=== PATIENT | female | born 1965 | race Caucasian/White ===

== ENCOUNTER → 2019-03-10 | Outpatient (CLI) | payer BC, SELFPAY ==
--- NOTE | 2019-03-10 06:58 | BI_ITS ---
MAMMOGRAPHY - BILATERAL SCREENING REASON FOR EXAM: Female, 53 years old. Routine annual screening examination. PERTINENT HISTORY: Grandmother with breast cancer. TECHNIQUE: Digital bilateral breast leonides (3D mammographic acquisition) in the CC and MLO projections. 2-D mediolateral oblique (MLO) and craniocaudad (CC) views of both breasts were obtained. CAD: Full Field Digital Mammography with Computer Added Detection was performed. COMPARISON: Comparison is made with prior outside examination dated November 25, 2008. FINDINGS: Breast Composition: There are scattered areas of fibroglandular density. There are no dominant masses or suspicious calcifications. Stable bilateral benign appearing axillary lymph nodes. No other significant abnormalities are identified. There has been no significant change since the prior study. BI/SCREEN MAMM (CAD) W/LEONIDES BILAT IMPRESSION: Stable bilateral screening mammogram. Yearly follow-up mammogram recommended. (A) ASSESSMENT CATEGORY: BIRADS Category 2: Benign. A letter regarding these results will be sent to the patient by the facility within 30 days. Approximately 10% of breast cancers are not detected by mammography. A normal mammogram should not delay biopsy of a clinically suspicious abnormality. [id number] Electronically Signed: Dimitrios Cyr, at 9:00 EDT , Service support ,
== END | disposition home or self-care (01) ==
LOC: OPBI 06:56
PROVIDERS: Family Provider Family Medicine; PCP Family Medicine; Referring Provider Nurse Practitioner Women's Health; Visit Provider Nurse Practitioner Women's Health
DX: Z12.31 Encounter for screening mammogram for malignant neoplasm of breast (principal)
CPT/HCPCS: 77063; 77067

== ENCOUNTER → 2019-06-24 | Outpatient (CLI) | payer BC, SELFPAY ==
[2019-06-24 08:05] VITALS: BMI 26.8
[2019-06-24 09:24] LABS: Cholesterol 186 mg/dL (200); Glucose 100 mg/dL (74-106); High Density Lipoprotein 57 mg/dL; Thyroid Stim Hormone (TSH) 2.25 uIU/mL (0.358-3.74); Triglycerides 103 mg/dL; Very Low Density Lipoprotein 21 mg/dL (5-40)
[2019-06-27 11:17] LABS: HPV APTIMA, High Risk Negative (Negative)
== END | disposition home or self-care (01) ==
PROVIDERS: PCP Family Medicine; Referring Provider Nurse Practitioner Women's Health; Visit Provider Nurse Practitioner Women's Health
DX: Z00.00 Encounter for general adult medical examination without abnormal findings (principal); Z12.4 Encounter for screening for malignant neoplasm of cervix
CPT/HCPCS: 36415; 80061; 82947; 84443; 87624; 88175; G0145

== ENCOUNTER → 2020-07-22 08:12 | Outpatient (CLI) | payer BC, SELFPAY ==
[2019-06-24 08:05] VITALS: BMI 26.8
[2020-07-20 08:07] VITALS: BMI 26.9
--- NOTE | 2020-07-22 08:14 | BI_ITS ---
MAMMOGRAPHY - BILATERAL SCREENING REASON FOR EXAM: Female, 55 years old. Routine annual screening examination. PERTINENT HISTORY: Grandmother with breast cancer. TECHNIQUE: Digital bilateral breast leonides (3D mammographic acquisition) in the CC and MLO projections. 2-D mediolateral oblique (MLO) and craniocaudad (CC) views of both breasts were obtained. CAD: Full Field Digital Mammography with Computer Added Detection was performed. COMPARISON: Comparison is made with prior study dated 03/10/2019. FINDINGS: Breast Composition: There are scattered areas of fibroglandular density. Questionable 1.4 cm x 1 cm nodular density in the upper lateral aspect of the left breast. Correlation with ultrasound is recommended. Stable benign appearing bilateral axillary lymph nodes. No other significant abnormalities are identified. BI/SCRN MAMM (CAD)W/LEONIDES BILAT IMPRESSION: Questionable 1.4 cm x 1 cm nodular density in the upper lateral aspect of the left breast as described. Correlation with ultrasound is recommended. ASSESSMENT CATEGORY: BIRADS Category 0: Incomplete. Need additional imaging evaluation. A letter regarding these results will be sent to the patient by the facility within 30 days. Approximately 10% of breast cancers are not detected by mammography. A normal mammogram should not delay biopsy of a clinically suspicious abnormality. [id number] Electronically Signed: Dimitrios Cyr MD at 11:32 EDT , Service support ,
== END ==
PROVIDERS: PCP Family Medicine; Referring Provider Obstetrics & Gynecology; Visit Provider Obstetrics & Gynecology
DX: Z12.31 Encounter for screening mammogram for malignant neoplasm of breast (principal)
CPT/HCPCS: 77063; 77067

== ENCOUNTER → 2020-08-02 07:49 | Outpatient (CLI) | payer BC, SELFPAY ==
[2020-07-20 08:07] VITALS: BMI 26.9
--- NOTE | 2020-08-02 07:57 | US_ITS ---
STUDY: ULTRASOUND BREAST - LEFT REASON FOR EXAM: Female, 55 years old. Abnormal screening mammogram. TECHNIQUE: Axial and longitudinal images of the LEFT breast were performed with a high resolution ultrasound transducer. # OF IMAGES: 53 COMPARISON: Comparison is made with prior mammogram dated 07/22/2020. FINDINGS: LEFT Breast: The upper outer quadrant of the breast was examined by ultrasound. There is evidence of a dilated ducts. No solid or cystic mass is seen. US/Breast Limited Unilateral IMPRESSION: Dilated ducts. ASSESSMENT CATEGORY: BIRADS Category 2: Benign. A letter regarding these results will be sent to the patient by the facility within 30 days. Electronically Signed: Dimitrios Cyr MD at 9:59 EDT , Service support ,
== END ==
PROVIDERS: PCP Family Medicine; Referring Provider Obstetrics & Gynecology; Visit Provider Obstetrics & Gynecology
DX: N63.21 Unspecified lump in the left breast, upper outer quadrant (principal)
CPT/HCPCS: 76642

== ENCOUNTER → 2023-10-05 | Outpatient (CLI) | payer OTHER, SELFPAY ==
[2023-10-05 09:17] LABS: Absolute Lymphocyte Count 1.83 X10^3/uL (0.83-4.51); Absolute Neutrophil Count 2.6 X10^3/uL (2.0-7.7); Basophil# 0.04 X10^3/uL; Basophil% 0.8 % (0-1); Eosinophil# 0.08 X10^3/uL; Eosinophils% 1.6 % (0-5); Hematocrit 40.9 % (37-47); Hemoglobin 13.4 g/dL (12.0-15.0); Lymphocyte # 1.83 X10^3/ul (0.83-4.51); Lymphocyte % 36.6 % (19-41); Mean Corp Hgb Conc 32.8 g/dL (32-36); Mean Corpuscular Hgb 30.2 pg (27.0-32.0); Mean Corpuscular Volume 92.1 fL (81-99); Mean Platelet Vol. 9.2 fl (6.2-12.0); NRBC Flagged by Analyzer 0 % (0-5); Neutrophil # 2.64 X10^3/uL (2.7-7.7); Neutrophil % 52.8 % (47-70); Platelet Count 202 K/mm3 (150-450); RBC Distribution Width CV 13.4 % (11.6-14.6); RBC Distribution Width SD 45.7 fl (35.1-43.9); Red Blood Count 4.44 M/mm3 (4.2-5.4)
[2023-10-05 10:35] LABS: Hemoglobin A1c 5.5 % (3.8-5.6)
[2023-10-05 10:39] LABS: ALB/GLOB Ratio 1.2 RATIO (0.9-2.4); AST(SGOT) 22 U/L (15-37); Alanine Aminotransfer ALT/SGPT 26 U/L (13-56); Alkaline Phosphatase 61 U/L (45-117); Anion Gap 5 (5-15); BUN 17 mg/dL (7-18); BUN/Creat Ratio 17.9 RATIO (10-20); Calcium,Total 9.4 mg/dL (8.5-10.1); Chloride 107 mmol/L (98-107); Cholesterol 196 mg/dL (200); Creatinine, Serum 0.95 mg/dL (0.55-1.02); EST Glomerular Filtration Rate 64 mL/min (>60); Est Glom Filt Rate - Afr Amer 78 mL/min (>60); Globulin 3.4 g/dL (2.2-4.2); Glucose 100 mg/dL (74-106); High Density Lipoprotein 66 mg/dL; Potassium 4.3 mmol/L (3.5-5.1); Protein, Total 7.4 g/dL (6.4-8.2); Rheumatoid Factor < 10.0 IU/mL (<15); Sodium Level 138 mmol/L (136-145); Triglycerides 85 mg/dL; Very Low Density Lipoprotein 17 mg/dL (5-40)
== END | disposition home or self-care (01) ==
LOC: PAVLAB 08:39
PROVIDERS: PCP Nurse Practitioner; Referring Provider Nurse Practitioner; Visit Provider Nurse Practitioner
DX: Z00.00 Encounter for general adult medical examination without abnormal findings (principal); M19.049 Primary osteoarthritis, unspecified hand
CPT/HCPCS: 36415; 80053; 80061; 83036; 85025; 86431

== ENCOUNTER → 2023-10-12 | Outpatient (CLI) | payer OTHER, SELFPAY ==
--- NOTE | 2023-10-12 07:55 | BI_ITS ---
MAMMOGRAPHY - BILATERAL SCREENING REASON FOR EXAM: Female, 58 years old. Routine annual screening examination. PERTINENT HISTORY: Grandmother with breast cancer. TECHNIQUE: Digital bilateral breast leonides (3D mammographic acquisition) in the CC and MLO projections. 2-D mediolateral oblique (MLO) and craniocaudad (CC) views of both breasts were obtained. CAD: Full Field Digital Mammography with Computer Added Detection was performed. COMPARISON: Comparison is made with prior study July 22, 2020 and March 10, 2019. FINDINGS: Breast Composition: There are scattered areas of fibroglandular density. There are no dominant masses or suspicious calcifications. No other significant abnormalities are identified. There has been no significant change since the prior study. BI/SCRN MAMM (CAD)W/LEONIDES BILAT IMPRESSION: Stable bilateral screening mammogram. Yearly follow-up mammogram recommended. (A) ASSESSMENT CATEGORY: BIRADS Category 1: Negative. A letter regarding these results will be sent to the patient by the facility within 30 days. Approximately 10% of breast cancers are not detected by mammography. A normal mammogram should not delay biopsy of a clinically suspicious abnormality. [id number] Electronically Signed: Dimitrios Cyr MD at 8:52 EDT ,
== END | disposition home or self-care (01) ==
LOC: OPBI 07:55
PROVIDERS: PCP Nurse Practitioner; Referring Provider Registered Nurse; Visit Provider Registered Nurse
DX: Z12.31 Encounter for screening mammogram for malignant neoplasm of breast (principal)
CPT/HCPCS: 77063; 77067

== ENCOUNTER → 2023-11-23 | Outpatient (CLI) | payer OTHER, SELFPAY ==
--- NOTE | 2023-11-23 13:48 | ECHOD_ITS ---
Reason For Study: Murmur Procedure This was a 2D Doppler, Color Flow transthoracic echocardiogram. Per order: valsalva was done to look for HOCM. Exam performed in department. Left Ventricle Normal LV size. The estimated ejection fraction is 60 %. No evidence for diastolic dysfunction. No regional wall motion abnormalities noted. Right Ventricle Normal RV size. Normal systolic function. Atria Normal left atrium. Normal right atrium. No doppler evidence for ASD. Mitral Valve There is no mitral valve stenosis. No mitral valve insufficiency. Tricuspid Valve There is no tricuspid stenosis. Trivial tricuspid valve insufficiency. Pulmonary artery systolic pressure is 20 mmHg. Aortic Valve Trisinus/trileaflet aortic valve. There is no aortic stenosis. No aortic valve insufficiency. Pulmonic Valve There is no pulmonic valvular stenosis. No pulmonic valve insufficiency. Great Vessels Normal aortic root. Pericardium/Pleural No pericardial effusion. MMode/2D Measurements & Calculations LVIDd: 4.5 cm IVSd: 0.86 cm Ao root diam: 3.2 cm LVIDs: 3.0 cm LVPWd: 1.0 cm LA dimension: 3.5 cm RVDd: 3.5 cm FS: 34.5 % LAV(MOD-bp): 40.1 ml LVAd ap4: 24.3 cm2 SV(MOD-sp4): 44.2 ml LAV(MOD-bp) Indexed: 23.1 ml/m2 LVLd ap4: 7.4 cm LAV(MOD-sp2): 34.4 ml EDV(MOD-sp4): 68.0 ml LAV(MOD-sp4): 41.3 ml EDV(sp4-el): 67.8 ml LVAs ap4: 12.8 cm2 LVLs ap4: 6.1 cm ESV(MOD-sp4): 23.8 ml ESV(sp4-el): 22.8 ml EF(MOD-sp4): 65.1 % EF(sp4-el): 66.4 % SV(sp4-el): 45.0 ml LA A4 area: 16.0 cm2 RA A4 area: 13.7 cm2 TAPSE: 2.1 cm Time Measurements MV dec time: 0.14 sec Doppler Measurements & Calculations MV E max pio: 76.6 cm/sec Lat Peak E' Pio: 13.6 cm/sec Med Peak E' Pio: 15.4 cm/sec MV A max pio: 65.7 cm/sec E/E' lat: 5.6 E/E' med: 5.0 MV E/A: 1.2 MV V2 max: 90.8 cm/sec MV P1/2t max pio: 92.8 cm/sec Ao V2 max: 174.6 cm/sec MV max P.3 mmHg MV P1/2t: 48.2 msec Ao max P.2 mmHg MV V2 mean: 43.6 cm/sec MV dec slope: 564.7 cm/sec2 Ao V2 mean: 121.4 cm/sec MV mean P.99 mmHg Ao mean P.7 mmHg MV V2 VTI: 22.8 cm MVA(P1/2t): 4.6 cm2 Ao V2 VTI: 38.8 cm AV (velocity ratio): 0.75 LV V1 max: 130.7 cm/sec PA V2 max: 96.6 cm/sec TR max pio: 209.1 cm/sec LV V1 max P.8 mmHg PA max PG (full): 1.4 mmHg TR max P.5 mmHg LV V1 mean P.8 mmHg PA V2 mean: 70.8 cm/sec LV V1 mean: 91.1 cm/sec PA mean PG (full): 0.96 mmHg LV V1 VTI: 29.0 cm ECHO/Echo Complete Interpretation Summary The estimated ejection fraction is 60 %. No evidence for diastolic dysfunction. Ordering Physician: Gale Chapman Referring Physician: Gale Chapman Performed By: Geoffrey Joshi RCS
== END | disposition home or self-care (01) ==
LOC: CVS 13:47
PROVIDERS: PCP Nurse Practitioner; Referring Provider Nurse Practitioner; Visit Provider Nurse Practitioner
DX: Z00.00 Encounter for general adult medical examination without abnormal findings (principal); R01.1 Cardiac murmur, unspecified
CPT/HCPCS: 93306

== ENCOUNTER → 2024-05-01 | Outpatient (CLI) | payer OTHER, SELFPAY ==
--- NOTE | 2024-05-01 16:40 | RAD_ITS ---
EXAM: XR RIGHT KNEE COMPLETE, 4 OR MORE VIEWS CLINICAL INDICATION: PAIN TECHNIQUE: Four or more views of the right knee. COMPARISON: No relevant prior studies available. FINDINGS: BONES/JOINTS: Unremarkable. No acute fracture. No subluxation. Normal alignment. Preservation of the joint space. No sclerotic or destructive changes observed. SOFT TISSUES: Unremarkable. No soft tissue swelling or gas. No radiopaque foreign body. RAD/Knee 4 or More Views IMPRESSION: Negative right knee x-rays. Electronically Signed: Wytat Dickson MD at 23:42 EST ,
== END | disposition home or self-care (01) ==
LOC: RAD 16:39
PROVIDERS: PCP Internal Medicine; Referring Provider Physician Assistant Surgical; Visit Provider Physician Assistant Surgical
DX: M25.561 Pain in right knee (principal)
CPT/HCPCS: 73564

== ENCOUNTER 2024-10-16 15:41 | Outpatient (CLI) | payer OTHER, SELFPAY ==
[2024-10-21 15:08] LABS: HPV APTIMA, High Risk Negative (Negative)
== END 2024-10-16 23:59 | disposition home or self-care (01) ==
LOC: LABSPEC 15:41
PROVIDERS: PCP Internal Medicine; Referring Provider Nurse Practitioner Family; Visit Provider Nurse Practitioner Family
DX: Z12.4 Encounter for screening for malignant neoplasm of cervix (principal)
CPT/HCPCS: 87624; 88175; G0145

== ENCOUNTER → 2024-12-30 | Outpatient (CLI) | payer OTHER, SELFPAY ==
--- NOTE | 2024-12-30 16:50 | RAD_ITS ---
PROCEDURE: L/S SPINE BENDING FLEX/EXT 12/30/2024 REASON FOR EXAM: BACK PAIN TECHNIQUE: L/S SPINE BENDING FLEX/EXT COMPARISON: None FINDINGS: Vertebral body height and alignment are maintained. There is no spondylolisthesis or instability demonstrated on the flexion or extension views. There is loss of disc height throughout the lumbar region. There is moderate facet sclerosis. Mineralization is normal. There is no visible atherosclerosis. RAD/L/S Spine Bending Flex/Ext IMPRESSION: There is degenerative disc disease throughout the lumbar region. There is no instability demonstrated. Reading Location: [id number]
== END | disposition home or self-care (01) ==
LOC: RAD 16:50
PROVIDERS: PCP Internal Medicine; Referring Provider Student in an Organized Health Care Education/Training Program; Visit Provider Student in an Organized Health Care Education/Training Program
DX: M54.9 Dorsalgia, unspecified (principal)
CPT/HCPCS: 72120

== ENCOUNTER → 2025-01-13 | Outpatient (CLI) | payer OTHER, SELFPAY | END | disposition home or self-care (01) | LOC: LABSPEC 07:57 | PROVIDERS: PCP Internal Medicine; Visit Provider Nurse Practitioner | DX: R30.0 Dysuria (principal) | CPT/HCPCS: 87086; 87088; 87186 ==

== ENCOUNTER 2025-02-16 09:19 | Outpatient (CLI) | payer OTHER, SELFPAY | END 2025-02-16 23:59 | disposition home or self-care (01) | LOC: BIMLAB 09:19 | PROVIDERS: PCP Internal Medicine; Referring Provider Internal Medicine; Visit Provider Internal Medicine | DX: Z13.6 Encounter for screening for cardiovascular disorders (principal) | CPT/HCPCS: 83695 ==

== ENCOUNTER → 2025-02-24 | Outpatient (CLI) | payer OTHER, SELFPAY ==
--- NOTE | 2025-02-24 16:15 | BI_ITS ---
EXAM: SCRN MAMM (CAD)W/LEONIDES BILAT DATE: 02/24/2025 CLINICAL HISTORY: F, Age 59 y/o , SCREEN FOR BREAST CANCER History of grandmother with breast cancer. TECHNIQUE: Procedure Code: BISMWCADBTOM Modality: MG Procedure: SCRN MAMM (CAD)W/LEONIDES BILAT COMPARISON: Prior exam(s) dated October 12, 2023.. FINDINGS: TISSUE DENSITY: There are scattered areas of fibroglandular density. Bilateral Breast Mammographic Findings: 6.3 mm nodular density in the lateral aspect of the left breast as seen in the craniocaudad view. This was not well seen on the mediolateral oblique view. The patient will be recalled for additional views including 90 degree lateral and compression spot views of the left breast. Stable benign-appearing bilateral axillary lymph nodes. BI/SCRN MAMM (CAD)W/LEONIDES BILAT IMPRESSION: 6.3 mm nodular density in the lateral aspect of the left breast as seen on the craniocaudad view. The patient will be recalled for additional views including 90 degree lateral and compression spot views of the left breast. OVERALL FINAL ASSESSMENT BI-RADS 0: INCOMPLETE - NEED ADDITIONAL IMAGING EVALUATION. RECOMMENDATION: Additional Views obtained/call backs Additional Recommendation none A letter with findings and recommendations will be mailed to the patient. Reading Location: [place] [id number]
--- NOTE | 2025-02-24 16:15 | BI_ITS ---
EXAM: SCRN MAMM (CAD)W/LEONIDES BILAT DATE: 02/24/2025 CLINICAL HISTORY: F, Age 59 y/o , SCREEN FOR BREAST CANCER History of grandmother with breast cancer. TECHNIQUE: Procedure Code: [id number] Modality: MG Procedure: SCRN MAMM (CAD)W/LEONIDES BILAT COMPARISON: Prior exam(s) dated October 12, 2023.. FINDINGS: TISSUE DENSITY: There are scattered areas of fibroglandular density. Bilateral Breast Mammographic Findings: 6.3 mm nodular density in the lateral aspect of the left breast as seen in the craniocaudad view. This was not well seen on the mediolateral oblique view. The patient will be recalled for additional views including 90 degree lateral and compression spot views of the left breast. Stable benign-appearing bilateral axillary lymph nodes. BI/SCRN MAMM (CAD)W/LEONIDES BILAT IMPRESSION: 6.3 mm nodular density in the lateral aspect of the left breast as seen on the craniocaudad view. The patient will be recalled for additional views including 90 degree lateral and compression spot views of the left breast. OVERALL FINAL ASSESSMENT BI-RADS 0: INCOMPLETE - NEED ADDITIONAL IMAGING EVALUATION. RECOMMENDATION: Additional Views obtained/call backs Additional Recommendation none A letter with findings and recommendations will be mailed to the patient. Reading Location: [place] [id number]
== END | disposition home or self-care (01) ==
LOC: OPBI 16:09
PROVIDERS: PCP Internal Medicine; Referring Provider Nurse Practitioner Family; Visit Provider Nurse Practitioner Family
DX: Z12.31 Encounter for screening mammogram for malignant neoplasm of breast (principal)
CPT/HCPCS: 77063; 77067

== ENCOUNTER → 2025-02-27 | Outpatient (CLI) | payer OTHER, SELFPAY ==
--- NOTE | 2025-02-27 14:02 | BI_ITS ---
EXAM: DIAG MAMM W/CAD, UNILAT; LT BRST UNILAT LEONIDES ADD ON; BREAST LIMITED UNILATERAL 02/27/2025 CLINICAL HISTORY: F, Age 59 y/o , ABD MAMM TECHNIQUE: Procedure Code: [id number]; BILTUNITOMO; USBRSTLIMIT Modality: MG; US Procedure: DIAG MAMM W/CAD, UNILAT; LT BRST UNILAT LEONIDES ADD ON; BREAST LIMITED UNILATERAL. COMPARISON: Prior exam(s) dated mammograms 02/24/2025, 10/12/2023, 07/22/2020. Ultrasound 08/02/2020 FINDINGS: MAMMOGRAM: TISSUE DENSITY: There are scattered areas of fibroglandular density. Unilateral Left Breast Mammographic Findings: Follow-up examination performed for the asymmetry in the lateral left breast seen on examination of 02/24/2025. On the present examination the asymmetry in the lateral left breast at middle depth persist. However, this is not significantly changed when compared to multiple mammograms dating back to 07/22/2020. ULTRASOUND: Ultrasound performed of the lateral left breast demonstrates no definite sonographic correlate for the asymmetry in the left breast. However, there are a few dilated ducts seen at 2-3 o'clock. BI/Lt Brst Unilat Leonides Add On IMPRESSION: 1.The asymmetry in the lateral left breast has not significantly changed when c ompared to multiple priors dating back to 2020 and is therefore considered benign. 2. Benign dilated ducts in the left breast. OVERALL FINAL ASSESSMENT BI-RADS 2: BENIGN RECOMMENDATION: Routine annual follow-up in 1 Year Additional Recommendation none A letter with findings and recommendations will be mailed to the patient. Reading Location: [id number]
--- NOTE | 2025-02-27 14:02 | BI_ITS ---
EXAM: DIAG MAMM W/CAD, UNILAT; LT BRST UNILAT LEONIDES ADD ON; BREAST LIMITED UNILATERAL 02/27/2025 CLINICAL HISTORY: F, Age 59 y/o , ABD MAMM TECHNIQUE: Procedure Code: [id number]; BILTUNITOMO; USBRSTLIMIT Modality: MG; US Procedure: DIAG MAMM W/CAD, UNILAT; LT BRST UNILAT LEONIDES ADD ON; BREAST LIMITED UNILATERAL. COMPARISON: Prior exam(s) dated mammograms 02/24/2025, 10/12/2023, 07/22/2020. Ultrasound 08/02/2020 FINDINGS: MAMMOGRAM: TISSUE DENSITY: There are scattered areas of fibroglandular density. Unilateral Left Breast Mammographic Findings: Follow-up examination performed for the asymmetry in the lateral left breast seen on examination of 02/24/2025. On the present examination the asymmetry in the lateral left breast at middle depth persist. However, this is not significantly changed when compared to multiple mammograms dating back to 07/22/2020. ULTRASOUND: Ultrasound performed of the lateral left breast demonstrates no definite sonographic correlate for the asymmetry in the left breast. However, there are a few dilated ducts seen at 2-3 o'clock. BI/DIAG MAMM W/CAD, UNILAT IMPRESSION: 1.The asymmetry in the lateral left breast has not significantly changed when c ompared to multiple priors dating back to 2020 and is therefore considered benign. 2. Benign dilated ducts in the left breast. OVERALL FINAL ASSESSMENT BI-RADS 2: BENIGN RECOMMENDATION: Routine annual follow-up in 1 Year Additional Recommendation none A letter with findings and recommendations will be mailed to the patient. Reading Location: [id number]
== END | disposition home or self-care (01) ==
LOC: OPBI 13:56
PROVIDERS: PCP Internal Medicine; Referring Provider Nurse Practitioner Family; Visit Provider Nurse Practitioner Family
DX: N63.20 Unspecified lump in the left breast, unspecified quadrant (principal)
CPT/HCPCS: 76642; 77061; 77065; G0279

== ENCOUNTER → 2025-03-24 | Outpatient (CLI) | payer OTHER, SELFPAY ==
--- NOTE | 2025-03-24 07:14 | CT_ITS ---
PROCEDURE: LIMITED CHEST CT CARDIAC ONLY 03/24/2025 REASON FOR EXAM: CALCIUM SCORE TECHNIQUE: Procedure Code: [id number] Modality: CT Procedure: LIMITED CHEST CT CARDIAC ONLY CONTRAST: None One or more dose reduction techniques were used (e.g., Automated exposure control, adjustment of the mA and/or kV according to patient size, use of iterative reconstruction technique). RADIATION DOSE SUMMARY: CTDlvol: 12.19 mGy DLP: 243.79 mGycm COMPARISON: None FINDINGS: The heart is nonenlarged. No coronary artery calcification is seen. The visualized portions of the lungs is unremarkable. CT/Limited Chest CT Cardiac Only IMPRESSION: No coronary artery calcification is seen. Reading Location: [facility]
--- OUTSIDE RECORDS SUMMARY | 2025-03-24 07:25 | XMS RPT_ITS | CCD ---
Author Organization [facility] CliniSyla Care Team Providers Care Integrated Circuits Inspector Name Role Phone Rodriguez Edgar Unavailable Unavailable PROVIDER, UNKNOWN Unavailable Unavailable Be Neal Unavailable Unavailable Unavailable Primary Care Provider Unavailabl e Unavailable Primary Care Provider Unavailabl e Mirza DANG, Dr. Mcghee Primary Care Provider Mirza DANG, Dr. Mcghee Referring Provider [phone] Rudy Caputo Attending Provider Porsha Cannon CNM Attending Provider Ana CAMPA-CCarmen Attending Provider Ana CAMPA-CCarmen Referring Provider Dr. Taz Blue MD Primary Care Provider Dr. Taz Blue MD Referring Provider [phone] Sara Sainz Attending Provider Sara Sainz Referring Provider Venkat CAMPA-Carmelo Rosario Attending Provider Dr. Taz Blue MD Primary Care Physician Sara Sainz Attending Physician Dr. Taz Blue MD Referring Provider [phone] Veknat CAMPA-Carmelo Rosario Attending Physician Dr. Taz Blue MD Attending Physician Assessment, Health Risk Attending Physician Unav ailable Ana CAMPA-Carmen Rosario Attending Physician Ana CAMPA-CCarmen Referring Provider Oleghe, Efewongbe Primary Care Unavailable Assessment, Health Risk Attending Unavaila ble Carmen Perez Referring Unavailable Carmen Perez Attending Unavailable Oleghe, Efewongbe Primary Care Unavailable Oleghe, Efewongbe Referring Unavailable Porsha Cannon Attending Unavailable Oleghe, Efewongbe Primary Care Unavailable Oleghe, Efewongbe Referring Unavailable Carmelo Robledo Attending Unavailable Oleghe, Efewongbe Primary Care Unavailable Oleghe, Efewongbe Referring Unavailable Oleghe, Efewongbe Primary Care Unavailable Rudy Caputo Attending Unavailable Oleghe, Efewongbe Primary Care Unavailable Oleghe, Efewongbe Referring Unavailable Oleghe, Efewongbe Attending Unavailable Oleghe, Efewongbe Referring Unavailable Oleghe, Efewongbe Primary Care Unavailable Rudy Caputo Attending Unavailable Oleghe, Efewongbe Referring Unavailable BarkCarmen titus Attending Unavailable Oleghe, Efewongbe Primary Care Unavailable Oleghe, Efewongbe Referring Unavailable AggieOrenyn Attending Unavailable Oleghe, Efewongbe Primary Care Unavailable Aggie Sara Referring Unavailable Aggie Sara Attending Unavailable Oleghe, Efewongbe Primary Care Unavailable Oleghe, Efewongbe Primary Care Unavailable Oleghe, Efewongbe Referring Unavailable Oleghe, Efewongbe Attending Unavailable Oleghe, Efewongbe Primary Care Unavailable Carmelo Robledo Attending Unavailable Oleghe, Efewongbe Primary Care Unavailable Carmen ePrez Referring Unavailable Carmen Perez Attending Unavailable Oleghe, Efewongbe Referring Unavailable Oleghe, Efewongbe Attending Unavailable Oleghe, Efewongbe Primary Care Unavailable Carmen Perez Referring Unavailable Carmen Perez Attending Unavailable Oleghe, Efewongbe Primary Care Unavailable Evan Abarca Referring Unavailable Evan Abarca Attending Unavailable Oleghe, Efewongbe Primary Care Unavailable Medications Current Medications Medication Drug Class(es) Dates Sig (Normalized) Sig (Original) B Complex Vitamins (B COMPLEX 1 PO) (1 source) B Complex Vitamins (B COMPLEX 1 PO) Take 1 capsule by mouth daily 0 Active calcium ascorbate 500 mg oral tablet (9 sources) Start: 06-24-2019 take 1 tablet by mouth once daily calcium carbonate 1500 mg oral tablet (1 source) take 1 tablet by mouth once daily calcium carbonate 600 MG TABS tablet Take 1 tablet by mouth daily 0 Active cholecalciferol 0.01 mg oral capsule (9 sources) Vitamin D Start: 09-28-2023 take 1 capsule by mouth once daily Garlic (6 sources) Non-Standardized Food Allergenic Extract Start: 01-02-2025 take 1 capsule by mouth once daily Start: 01-02-2025 take 1 capsule by mouth once d aily Garlic 300 mg capsule Active 300 mg PO daily January 02, 2025 12:00am lactobacillus acidophilus 16 mg oral capsule (1 source) Lactobacillus (ACIDOPHILUS) 100 MG CAPS Take by mouth 0 Active Lactobacillus Combination No.8 (Adult Probiotic) 3 billion cell capsule (9 sources) Start: 06-24-2019 take 3 capsules by mouth once daily Start: 06-24-2019 take 3 capsules by m outh once daily Lactobacillus Combination No.8 (Adult Probiotic) 3 billion cell capsule Active 3000 NMA PO DAILY June 24, 2019 1:00am administer with a meal lysine 1000 mg oral tablet (9 sources) Start: 09-28-2023 magnesium citrate 100 mg oral tablet (9 sources) Start: 09-28-2023 take 4 tablets by mouth once daily magnesium gluconate 550 mg oral tablet (1 source) take 1 tablet by mouth twice daily magnesium 30 MG tablet Take 30 mg by mouth 2 times daily 0 Active magnesium glycinate 100 mg oral tablet (9 sources) Start: 09-28-2023 magnesium oxide 400 mg oral capsule (20 sources) Start: 09-28-2023 Start: 07-20-2020 End: 09-28-2023 take 1 tablet by mouth once daily Magnesium Oxide 250 mg magnesium tablet Discontinued 250 mg PO DAILY July 20, 2020 1:00am September 28, 2023 7:48am Start: 06-24-2019 End: 09-28-2023 take 1 capsule by mouth once daily Magnesium Oxide 400 mg magnesium capsule Discontinued 400 mg PO DAILY June 24, 2019 1:00am September 28, 2023 7:52am meloxicam 7.5 mg oral tablet (10 sources) Nonsteroidal Anti-inflammatory Drug Start: 01-02-2025 End: 01-09-2025 take 1 tablet by mouth twice daily metoprolol tartrate 50 mg oral tablet (2 sources) beta-Adrenergic Dorota Start: 02-16-2025 take 1 tablet by mouth once daily Multiple Vitamins-Minerals (THERAPEUTIC MULTIVITAMIN-MINE RALS) tablet (1 source) take 1 tablet by mouth once daily Multiple Vitamins-[place] als (THERAPEUTIC MULTIVITAMIN-M INERALS) tablet Take 1 tablet by mouth daily 0 Active Multivitamin,Tx-I crow-Minerals (Complete Multivitamin) tablet (9 sources) Start: 06-24-2019 Start: 06-24-2019 Multivitamin,T z-Fjps-Bldqseqd (Complete Multivitamin) tablet Active 1 {tbl} PO DAILY June 24, 2019 1:00am mupirocin 0.02 mg/mg topical ointment (1 source) RNA Synthetase Inhibitor Antibacterial Start: 10-12-2022 End: 10-17-2022 mupirocin (BACTROBAN) 2 % ointment Apply to affected area twice daily for 5 days. 30 g 0 10/12/2022 10/17/2022 Active Comment on above: Apply to affected ar ea twice daily for 5 days. Christopher-3 Fatty Acids (OMEGA 3 PO) (1 source) take 1 capsule by mouth once daily Christopher-3 Fatty Acids (OMEGA 3 PO) Take 1 capsule by mouth daily 0 Active ubidecarenone 75 mg oral capsule (9 sources) Start: 09-28-2023 Completed/Discontinued Medications Medication Drug Class(es) Dates Sig (Normalized) Sig (Original) benzonatate 200 mg oral capsule (9 sources) Non-narcotic Antitussive Start: 5 End: 5 take 1 capsule by mouth three times daily as needed for cough Benzonatate 200 mg capsule Discontinued 200 mg PO THREE TIMES A DAY as needed for cough 20 0 September 01, 2024 12:00am October 16, 2024 2:59pm cephalexin 500 mg oral capsule (3 sources) Cephalosporin Antibacterial Start: 5 End: 5 take 1 capsule by mouth twice daily Cephalexin 500 mg capsule Discontinued 500 mg PO TWICE A DAY 10 5 0 January 13, 2025 12:00am January 17, 2025 12:00am January 18, 2025 12:06am methylPREDNISolone 4 mg oral tablet (9 sources) Corticosteroid Start: 5 End: 5 take 1 tablet by mouth once Methylprednisolone (Medrol (Joseph)) 4 mg tablets,dose pack Discontinued 0 PO per package directions 21 0 September 01, 2024 12:00am October 16, 2024 2:59pm PO PER PKG DIR Christopher-3 Fatty Acids 1,000 mg capsule (9 sources) Start: 1 End: 4 take 1 capsule by mouth once daily Christopher-3 Fatty Acids 1,000 mg capsule Discontinued 1000 mg PO DAILY July 20, 2020 1:00am September 28, 2023 7:48am Problems Active Problems Problem Classification Problem Date Documented Date Episodic/Chronic Administrative/social admission (9 sources) First encounter by subject; Translations: [Persons encountering health services in other specified circumstances] 09-28-2023 Episodic Genitourinary symptoms and ill-defined conditions (1 source) Dysuria; Translations: [Dysuria] Onset: 01-20-2025 Episodic Hemorrhoids (3 sources) First degree hemorrhoids; Translations: [Internal hemorrhoids grade I] Onset: 02-14-2018 02-14-2018 Episodic Menopausal disorders (9 sources) Menopausal syndrome; Translations: [Menopausal and female climacteric states] 07-20-2020 Chronic Comment on above: supportive care. no intervention at this time. Osteoarthritis (9 sources) Degenerative joint disease of hand; Translations: [Primary osteoarthritis, unspecified hand] 09-28-2023 Chronic Other and unspecified benign neoplasm (2 sources) Benign neoplasm of transverse colon; Translations: [Benign neoplasm of transverse colon] Onset: 02-14-2018 Episodic Other female genital disorders (14 sources) Cyst of vagina; Translations: [Other specified noninflammatory disorders of vagina] 09-23-2024 Episodic Comment on above: resolving. infection signs reviewed. has annual in october for follow up. will start using revaree for increasing moisture Residual codes; unclassified (11 sources) FH: premature coronary heart disease; Translations: [Family history of ischemic heart disease and other diseases of the circulatory system] 09-28-2023 Episodic Residual codes; unclassified (2 sources) Family history of ischemic heart disease and other diseases of the circulatory system; Translations: [Family history of ischemic heart disease and other diseases of the circulatory system] Onset: 02-16-2025 Episodic Spondylosis; intervertebral disc disorders; other back problems (10 sources) Herniation of nucleus pulposus; Translations: [Other intervertebral disc displacement, lumbosacral region] 01-02-2025 Chronic Spondylosis; intervertebral disc disorders; other back problems (18 sources) Lumbar radiculopathy; Translations: [Radiculopathy, lumbar region] Onset: 01-05-2025 Episodic Superficial injury; contusion (1 source) Insect bite of lower limb; Translations: [Insect bite (nonvenomous), right lower leg, initial encounter] Episodic Unclassified (20 sources) Encounter for screening for malignant neoplasm of colon; Translations: [Patient encounter status] Onset: 02-14-2018 Resolved: 02-20-2018 02-20-2018 Episodic Comment on above: dilated ducts; NL US - repeat screening in one year 07/2021 Unclassified (10 sources) M54.16 - Radiculopathy, lumbar region Unclassified (1 source) Cough, unspecified; Translations: [Cough, unspecified] Onset: 09-01-2024 Urinary tract infections (6 sources) Acute urinary tract infection; Translations: [Urinary tract infection, site not specified] 01-13-2025 Episodic Viral infection (1 source) Disease caused by 2019-nCoV; Translations: [COVID-19] Episodic Past or Other Problems Problem Classification Problem Date Documented Da te Episodic/Chronic Malaise and fatigue (1 source) Fatigue; Translations: [Other fatigue] Onset: 12-09-2014 12-09-2014 Episodic Neoplasms of unspecified nature or uncertain behavior (1 source) Neoplasm of uncertain behavior of skin of knee; Translations: [Neoplasm of uncertain behavior of skin] Onset: 02-07-2017 02-07-2017 Episodic Other and unspecified benign neoplasm (1 source) Benign neoplasm of transverse colon; Translations: [Benign neoplasm of transverse colon] Resolved: 02-20-2018 02-20-2018 Episodic Other inflammatory condition of skin (1 source) Prurigo nodularis; Translations: [Prurigo nodularis] Onset: 02-13-2017 02-13-2017 Episodic Other non-traumatic joint disorders (1 source) Pain in right knee; Translations: [Pain in right knee] Onset: 06-04-2024 Episodic Residual codes; unclassified (1 source) Family history of cardiac disorder; Translations: [Family history of ischemic heart disease and other diseases of the circulatory system] Onset: 12-09-2014 12-09-2014 Episodic Results Test Name Value Interpretation Reference Range Facility Breast Limited Unilateralon 02-27-2025 Breast Limited Unilateral [facility] [address] [place] [address] Breast Limited Unilateral MR#: [id number] Acct: [id number] Name: ENRIQUE RESTREPO Rep #: [id number] : 1965 F 59 From: Gaby Hernández MD PCP: Dr. Taz Blue MD Status: REG CLI Study: Breast Limited Unilateral Date of Exam: Exam# [id number] Ordering Dr: Carmen Perez CUSTOMER [employer]CCESS AD[employer]OCATE-C EXAM: DIAG MAMM W/CAD, UNILAT; LT BRST UNILAT JAMAL ADD ON; BREAST LIMITED UNILATERAL 02/27/2025 CLINICAL HISTORY: F, Age 59 y/o , ABD MAMM TECHNIQUE: Procedure Code: BIDMWCADU; BILTUNITOMO; USBRSTLIMIT Modality: MG; US Procedure: DIAG MAMM W/CAD, UNILAT; LT BRST UNILAT JAMAL ADD ON; BREAST LIMITED UNILATERAL. COMPARISON: Prior exam(s) dated mammograms 02/24/2025, 10/12/2023, 07/22/2020. Ultrasound 08/02/2020 FINDINGS: MAMMOGRAM: TISSUE DENSITY: There are scattered areas of fibroglandular density. Unilateral Left Breast Mammographic Findings: Follow-up examination performed for the asymmetry in the lateral left breast seen on examination of 02/24/2025. On the present examination the asymmetry in the lateral left breast at middle depth persist. However, this is not significantly changed when compared to multiple mammograms dating back to 07/22/2020. ULTRASOUND: Ultrasound performed of the lateral left breast demonstrates no definite sonographic correlate for the asymmetry in the left breast. However, there are a few dilated ducts seen at 2-3 o'clock. US/Breast Limited Unilateral IMPRESSION: 1.The asymmetry in the lateral left breast has not significantly changed when compared to multiple priors dating back to 2020 and is therefore considered benign. 2. Benign dilated ducts in the left breast. OVERALL FINAL ASSESSMENT BI-RADS 2: BENIGN RECOMMENDATION: Routine annual follow-up in 1 Year Additional Recommendation none A letter with findings and recommendations will be mailed to the patient. Reading Location: [id number] CC: C[employer]-C Carmen Perez; Dr. Taz Blue MD Case Technician: Signed Normal [facility] DIAG MAMM W/CAD, UNILATon DIAG MAMM W/CAD, UNILAT [facility] Imaging Services [address], [place] [address] DIAG MAMM W/CAD, UNILAT MR#: [id number] Acct: [id number] Name: ENRIQUE RESTREPO Rep #: [id number] : 1965 F 59 From: Gaby Hernández MD PCP: Dr. Taz Blue MD Status: REG CLI Study: DIAG MAMM W/CAD, UNILAT Date of Exam: 02/27/25 Exam# [id number] Ordering Dr: Carmen Perez CUSTOMER SUCCESS ADVOCATERadhamesC EXAM: DIAG MAMM W/CAD, UNILAT; LT BRST UNILAT JAAML ADD ON; BREAST LIMITED UNILATERAL 02/27/2025 CLINICAL HISTORY: F, Age 59 y/o , ABD MAMM TECHNIQUE: Procedure Code: BIDMWCADU; BILTUNITOMO; USBRSTLIMIT Modality: MG; US Procedure: DIAG MAMM W/CAD, UNILAT; LT BRST UNILAT JAMAL ADD ON; BREAST LIMITED UNILATERAL. COMPARISON: Prior exam(s) dated mammograms 02/24/2025, 10/12/2023, 07/22/2020. Ultrasound 08/02/2020 FINDINGS: MAMMOGRAM: TISSUE DENSITY: There are scattered areas of fibroglandular density. Unilateral Left Breast Mammographic Findings: Follow-up examination performed for the asymmetry in the lateral left breast seen on examination of 02/24/2025. On the present examination the asymmetry in the lateral left breast at middle depth persist. However, this is not significantly changed when compared to multiple mammograms dating back to 07/22/2020. ULTRASOUND: Ultrasound performed of the lateral left breast demonstrates no definite sonographic correlate for the asymmetry in the left breast. However, there are a few dilated ducts seen at 2-3 o'clock. BI/DIAG MAMM W/CAD, UNILAT IMPRESSION: 1.The asymmetry in the lateral left breast has not significantly changed when compared to multiple priors dating back to 2020 and is therefore considered benign. 2. Benign dilated ducts in the left breast. OVERALL FINAL ASSESSMENT BI-RADS 2: BENIGN RECOMMENDATION: Routine annual follow-up in 1 Year Additional Recommendation none A letter with findings and recommendations will be mailed to the patient. Reading Location: [id number] CC: CUSTOMER SUCCESS ADVOCATELuna Perez; Dr. Taz Blue MD Case Technician: Signed Normal [facility] Lt Brst Unilat Jamal Add Onon 02-27-2025 Lt Brst Unilat Jamal Add On [facility] [address] [place], [place] [address] Lt Brst Unilat Jamal Add On MR#: [id number] Acct: [id number] Name: ENRIQUE RESTREPO Rep #: [id number] : 1965 F 59 From: Gaby Hernández MD PCP: Dr. Taz Blue MD Status: REG CLI Study: Lt Brst Unilat Jamal Add On Date of Exam: 02/27 Exam# [id number] Ordering Dr: Carmen Perez CUSTOMER SU[employer] ADVOC[employer]adhamesC EXAM: DIAG MAMM W/CAD, UNILAT; LT BRST UNILAT JAMAL ADD ON; BREAST LIMITED UNILATERAL 02/27/2025 CLINICAL HISTORY: F, Age 59 y/o , ABD MAMM TECHNIQUE: Procedure Code: BIDMWCADU; BILTUNITOMO; USBRSTLIMIT Modality: MG; US Procedure: DIAG MAMM W/CAD, UNILAT; LT BRST UNILAT JAMAL ADD ON; BREAST LIMITED UNILATERAL. COMPARISON: Prior exam(s) dated mammograms 02/24/2025, 10/12/2023, 07/22/2020. Ultrasound 08/02/2020 FINDINGS: MAMMOGRAM: TISSUE DENSITY: There are scattered areas of fibroglandular density. Unilateral Left Breast Mammographic Findings: Follow-up examination performed for the asymmetry in the lateral left breast seen on examination of 02/24/2025. On the present examination the asymmetry in the lateral left breast at middle depth persist. However, this is not significantly changed when compared to multiple mammograms dating back to 07/22/2020. ULTRASOUND: Ultrasound performed of the lateral left breast demonstrates no definite sonographic correlate for the asymmetry in the left breast. However, there are a few dilated ducts seen at 2-3 o'clock. BI/Lt Brst Unilat Jamal Add On IMPRESSION: 1.The asymmetry in the lateral left breast has not significantly changed when compared to multiple priors dating back to 2020 and is therefore considered benign. 2. Benign dilated ducts in the left breast. OVERALL FINAL ASSESSMENT BI-RADS 2: BENIGN RECOMMENDATION: Routine annual follow-up in 1 Year Additional Recommendation none A letter with findings and recommendations will be mailed to the patient. Reading Location: [id number] CC: CUSTOMER SUCCESS ADVOCATE-C Carmen Perez; Dr. Taz Blue MD Case Technician: Signed Normal [facility] SCRN MAMM (CAD)W/JAMAL BILATo n 02-24-2025 SCRN MAMM (CAD)W/JAMAL BILAT [facility] Services [address] [place], [place] [id number] SCRN MAMM (CAD)W/JAMAL BILAT MR#: [id number] Acct: [id number] Name: ENRIQUE RESTREPO Rep #: [id number] : 1965 F 59 From: Dimitrios valdez MD PCP: Dr. Taz Blue MD Status: REG CLI Study: SCRN MAMM (CAD)W/JAMAL BILAT Date of Exam: 02/11 09/05 Exam# [id number] Ordering Dr: Carmen Perez CUSTOMER SUCCESS ADVOCATELuna EXAM: SCRN MAMM (CAD)W/JAMAL BILAT DATE: 02/24/2025 CLINICAL HISTORY: F, Age 59 y/o , SCREEN FOR BREAST CANCER History of grandmother with breast cancer. TECHNIQUE: Procedure Code: BISMWCADBTOM Modality: MG Procedure: SCRN MAMM (CAD)W/JAMAL BILAT COMPARISON: Prior exam(s) dated October 12, 2023.. FINDINGS: TISSUE DENSITY: There are scattered areas of fibroglandular density. Bilateral Breast Mammographic Findings: 6.3 mm nodular density in the lateral aspect of the left breast as seen in the craniocaudad view. This was not well seen on the mediolateral oblique view. The patient will be recalled for additional views including 90 degree lateral and compression spot views of the left breast. Stable benign-appearing bilateral axillary lymph nodes. BI/SCRN MAMM (CAD)W/JAMAL BILAT IMPRESSION: 6.3 mm nodular density in the lateral aspect of the left breast as seen on the craniocaudad view. The patient will be recalled for additional views including 90 degree lateral and compression spot views of the left breast. OVERALL FINAL ASSESSMENT BI-RADS 0: INCOMPLETE - NEED ADDITIONAL IMAGING EVALUATION. RECOMMENDATION: Additional Views obtained/call backs Additional Recommendation none A letter with findings and recommendations will be mailed to the patient. Reading Location: [place] [address] CC: MARICEL Perez; Dr. Taz Blue MD Case Technician: Signed Normal [facility] Lipoprotein Aon 02-17-2025 Lipoprotein a [Mass/Vol] mg/dL Normal <75.0 [facility] Comment on above: Order Comment: Test( s) 755900-[id number] (a) was developed and its performance characteristics determined by [employer]. It has not been cleared or approved by the Food and Drug Administration. Result Comment: Re sults verified by repeat testing Note: Values greater than or equal to 75.0 nmol/L may indicate an independent risk factor for CHD, but must be evaluated with caution when applied to non- populations due to the influence of genetic factors on Lp(a) across ethnicities. Performed at: [address] [id number] Director Corporate Security: Mario Krishnamurthy PhD, Phone: [phone] Performed By: #### L 3400.4600 #### [facility] [address] [place], [place], [id number] Absolute lymphocyte countOrd ered By: HEALTH ASSESSMENT on 02-16-2025 Lymphocytes Auto (Unsp spec) [#/Vol] 1.83 10*3/uL 0.83-4.51 [facility] Absolute neutrophil countOrd ered By: HEALTH ASSESSMENT on 02-16-2025 Neutrophils (Bld) [#/Vol] 4.0 10*3/uL 2.0-7.7 [facility] Absolute nucleated red blood cell countOrdered By: HEALTH ASSESSMENT on 02-16-2025 Nucleated RBC (Bld) [#/Vol] 0.00 10*3/uL 0-5 [facility] Anion gap in Serum or Plasma Ordered By: HEALTH ASSESSMENT on 02-16-2025 Anion gap [Moles/Vol] 12 mmol/L 5-15 [facility] BUN/creatinine ratioOrdered By: HEALTH ASSESSMENT on 02-16-2025 Urea nitrogen/Creatinine [Mass ratio] 31.8 mg/mg High 10-20 [facility] Bilirubin directOrdered By: HEALTH ASSESSMENT on 02-16-2025 Bilirubin.direct [Mass/Vol] 0.09 mg/dL 0.00-0.30 [facility] Bilirubin, totalOrdered By: HEALTH ASSESSMENT on 02-16-2025 Bilirubin [Mass/Vol] 0.26 mg/dL 0.00-1.30 [facility] Blood band neutrophil count as percentage of total leukocytesOrdered By: HEALTH ASSESSMENT on 02-16-2025 Band form neutrophils/100 WBC (Bld) 61.8 % 47-70 [facility] CBC, Employeeon 02-16-2025 Absolute Lymph 1.83 X10 3/uL Normal 0.83-4.51 [facility] Comment on above: Performed By: #### L 500.2900, L100.0200 #### [facility] [address] [place], [address] Absolute Neut 4.0 X10 3/uL Normal 2.0-7.7 [facility] Comment on above: Performed By: #### L 500.2900, L100.0200 #### [facility] [address] [place], [address] Basophils/100 WBC (Bld) 0.5 % Normal 0-1 [facility] Comment on above: Performed By: #### L 500.2900, L100.0200 #### [facility] [address] [place], [address] Eosinophils/100 WBC (Bld) 2.2 % Normal 0-5 [facility] Comment on above: Performed By: #### L 500.2900, L100.0200 #### [facility] [address] [place], [address] Erythrocyte distribution width (RBC) [Ratio] 13.5 % Normal 11.6-14.6 [facility] Comment on above: Performed By: #### L 500.2900, L100.0200 #### [facility] [address] [place], [address] Hematocrit (Bld) [Volume fraction] 40.1 % Normal 37-47 [facility] Comment on above: Performed By: #### L 500.2900, L100.0200 #### [facility] [address] [place], [address] Hemoglobin (Bld) [Mass/Vol] 13.6 g/dL Normal 12.0-15.0 [facility] Comment on above: Performed By: #### L 500.2900, L100.0200 #### [facility] [address] [place], [address] Lymphocytes/100 WBC (Bld) 28.5 % Normal 19-41 [facility] Comment on above: Performed By: #### L 500.2900, L100.0200 #### [facility] [address] [place], [address] MCH (RBC) [Entitic mass] 30.6 pg Normal 27.0-32.0 [facility] Comment on above: Performed By: #### L 500.2900, L100.0200 #### [facility] [facility] [address] [place], [address] MCHC (RBC) [Mass/Vol] 33.9 g/dL Normal 32-36 [facility] Comment on above: Performed By: #### L 500.2900, L100.0200 #### [facility] [address] [place], [address] MCV (RBC) [Entitic vol] 90.1 fL Normal 81-99 [facility] Comment on above: Performed By: #### L 500.2900, L100.0200 #### [facility] [address] [place], [address] Monocytes/100 WBC (Bld) 6.7 % Normal 0-10 [facility] Comment on above: Performed By: #### L 500.2900, L100.0200 #### [facility] [address] [place], [address] Neutrophils/100 WBC (Bld) 61.8 % Normal 47-70 [facility] Comment on above: Performed By: #### L 500.2900, L100.0200 #### [facility] [address] [place], [address] NRBC # 0.00 10 3/uL Normal 0-5 [facility] Comment on above: Performed By: #### L 500.2900, L100.0200 #### [facility] [address] [place], [address] Nucleated RBC (Bld) [#/Vol] 0 10*3/uL Normal 0-5 [facility] Comment on above: Performed By: #### L 500.2900, L100.0200 #### [facility] [address] [place], [address] Platelet mean volume (Bld) [Entitic vol] 9.2 fL Normal 6.2-12.0 [facility] Comment on above: Performed By: #### L 500.2900, L100.0200 #### [facility] [address] [place], [address] Platelets (Bld) [#/Vol] 237 10*3/uL Normal 150-450 [facility] Comment on above: Performed By: #### L 500.2900, L100.0200 #### [facility] [address] [place], [address] RBC (Bld) [#/Vol] 4.45 10*6/uL Normal 4.2-5.4 [facility] Comment on above: Performed By: #### L 500.2900, L100.0200 #### [facility] [address] [place], [address] RDW SD 44.6 fl High 35.1-43.9 [facility] Comment on above: Performed By: #### L 500.2900, L100.0200 #### [facility] [address] [place], [address] WBC (Bld) [#/Vol] 6.4 10*3/uL Normal 4.4-11.0 [facility] Comment on above: Performed By: #### L 500.2900, L100.0200 #### [facility] [address] [place], [address] Calculated very low density lipoprotein (VLDL) cholesterol measurementOrdered By: HEALTH ASSESSMENT on 02-16-2025 Calculated very low density lipoprotein (VLDL) cholesterol measurement 32 mg/dL 5-40 [facility] Carbon dioxide, total [Moles /volume] in Central venous bloodOrdered By: HEALTH ASSESSMENT on 02-16-2025 CO2 [Moles/Vol] 24.6 mmol/L 21.0-32.0 [facility] Chloride assayOrdered By: HE ALTH ASSESSMENT on 02-16-2025 Chloride [Moles/Vol] 102 mmol/L 98-108 [facility] Employee Profileon LDH 199 U/L Normal 84-246 [facility] Comment on above: Performed By: #### L 500.2900, L100.0200 #### [facility] [address] [place], [address] Phosphate [Mass/Vol] 4.0 mg/dL Normal 2.7-4.5 [facility] Comment on above: Performed By: #### L 500.2900, L100.0200 #### [facility] [address] [place], [address] URIC 4.0 mg/dL Normal 2.6-6.0 [facility] Comment on above: Result Comment: The drugs N-Acetylcysteine and Metamizole may falsely depress this assay. Performed By: #### L 500.2900, L100.0200 #### [facility] [address] [place], [address] Erythrocyte distribution wid th ratioOrdered By: HEALTH ASSESSMENT on 02-16-2025 Erythrocyte distribution width (RBC) [Ratio] 13.5 % 11.6-14.6 [facility] Erythrocyte distribution wid th standard deviationOrdered By: HEALTH ASSESSMENT on 02-16-2025 Erythrocyte distribution width (RBC) [Ratio] 44.6 fl High 35.1-43.9 [facility] Glomerular filtration rate ( GFR) estimation/1.73 sq m using serum, plasma, or whole bOrdered By: HEALTH ASSESSMENT on 02-16-2025 GFR/1.73 sq M.predicted among non-blacks MDRD (S/P/Bld) [Vol rate/Area] 85 mL/min/{1.73_m2} >60 [facility] Comment on above: mL/min/1.73m2 CKD-EP I Creatinine Equation (2020) Hematocrit Auto (Bld) [Volum e fraction]Ordered By: HEALTH ASSESSMENT on 02-16-2025 Hematocrit (Bld) [Volume fraction] 40.1 % 37-47 [facility] Hemoglobin measurementOrdere d By: HEALTH ASSESSMENT on 02-16-2025 Hemoglobin (Bld) [Mass/Vol] 13.6 g/dL 12.0-15.0 [facility] Internal Medicine Office Vis iton 02-16-2025 Internal Medicine Office Visit [facility] [address] [place] [address] [place] [address] OFFICE VISIT Date of Service: 02/16/25 MR#: [id number] Acct: [id number] Name: ENRIQUE RESTREPO Rep #: [id number] : 1965 Provider: Dr. Taz barros MD Age/Sex: 59/F Location: [facility] Status: Signed Intake Vital Signs 12/25/24 10:07 01/02/25 08:06 02/16/25 08:40 Height 5 ft 3.5 in 5 ft 3.5 in 5 ft 3 in Weight: 159 lb BMI 28.1 BP 108/72 Blood Pressure Location Lt brachial Position Sitting Respiration 14 Pulse 79 Pulse Source Monitor Temp 97.2 F L Temp Source Temporal Pulse Oximetry (%) 97 Oxygen Delivery Method room air Intake Visit Reasons: Yearly. Check up. Ortho Patient Chief Complaint: Yearly visit Telephone Sterilizer Required: No Is patient in pain?: No Allergies No Known Allergies Allergy (Verified 02/16/25 08:37) Medications ???Medication ???Instructions ???Recorded ???Confirmed ???Type ascorbate calcium (vitamin C) 500 500 mg PO DAILY 06/24/19 02/16/25 History mg tablet lactobacillus combination no.8 3 3,000 mmu cells PO DAILY 06/24/19 02/16/25 History billion cell capsule (Adult Probiotic) multivitamin,tx-iron-mi nerals 1 tab PO DAILY 06/24/19 02/16/25 H istory (Complete Multivitamin tablet) cholecalciferol (vitamin D3) 10 10 mcg PO DAILY 09/28/23 02/16/25 History mcg (400 unit) capsule coenzyme Q10 75 mg capsule (Ultra 75 mg PO DAILY 09/28/23 02/16/25 History CoQ10) lysine 1,000 mg tablet 600 mg PO DAILY 09/28/23 02/16/25 History magnesium citrate 100 mg tablet 400 mg PO DAILY 09/28/23 02/16/25 History magnesium glycinate 100 mg (as 200 mg PO DAILY 09/28/23 02/16/25 History glycinate) tablet magnesium oxide 250 mg PO DAILY 09/28/23 02/16/25 History garlic 300 mg capsule 300 mg PO QDAY 01/02/25 02/16/25 H istory meloxicam 7.5 mg tablet 7.5 mg PO BID Pain #60 tabs 02/16/25 Rx metoprolol tartrate 50 mg tablet 50 mg PO QDAY #1 TAB 02/16/2511/05 Rx [facility] Medical History (Updated 02/16/25 @ 09:[address] 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 Her primary concern is a family history of early coronary artery disease; her father at age 63 from a cardiac event and did not have common risk factors such as smoking. There is a broader family history of sudden cardiac among her father's aunts and uncles. There is suspicion of hypertrophic obstructive cardiomyopathy (HOCM) in her father's sister, who underwent a cardiac procedure, though the diagnosis is unconfirmed. A previous provider ordered a coronary artery calcium score over a year ago, but the patient did not have it done. The patient's last colonoscopy was in 2017 with a 10-year follow-up recommended. 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 Her last menstrual period was at age 53. She has a history of a herniated disc that has improved with physical therapy, allowing her to slowly return to CrossFit and weightlifting. The patient is not current on all immunizations and is due for the shingles vaccine. She exercises by walking and is cautious while reintroducing more strenuous activity. Attestation: Documentation on this patient encounter was supported using ambient scribe technology/ voice AI technology. The patient consented to recording for the purpose of documenting the encounter. Provider reviewed content of the generated note prior to signature. ROS Const Constitutional: No body ache, chills, excessive sweating, fatigue, fever(s), frequent falls, headache(s) (more content not included)... Normal [facility] LDL calc ser/plasOrdered By: HEALTH ASSESSMENT on 02-16-2025 Cholesterol in LDL [Mass/Vol] 107 mg/dL [facility] Comment on above: Dqcxqgihsi=297-807 m g/dL & Higher Ilmj=858 mg/dL or greaterFriedwald Equation for LDL-C Laboratory - Chemistry and C hemistry - challengeOrdered By: HEALTH ASSESSMENT on 02-16-2025 AST [Catalytic activity/Vol] 21 U/L <32 [facility] Lactate dehydrogenase (LDH) measurementOrdered By: HEALTH ASSESSMENT on 02-16-2025 LDH [Catalytic activity/Vol] 199 U/L 84-246 [facility] MCV (mean corpuscular volume ) determinationOrdered By: HEALTH ASSESSMENT on 02-16-2025 MCV (RBC) [Entitic vol] 90.1 fL 81-99 [facility] Mean corpuscular hemoglobin (MCH) determinationOrdered By: HEALTH ASSESSMENT on 02-16-2025 MCH (RBC) [Entitic mass] 30.6 pg 27.0-32.0 [facility] Mean corpuscular hemoglobin concentration (MCHC) determinationOrdered By: HEALTH ASSESSMENT on 02-16-2025 MCHC (RBC) [Mass/Vol] 33.9 g/dL 32-36 [facility] Mean platelet volume determi nationOrdered By: HEALTH ASSESSMENT on 02-16-2025 Platelet mean volume (Bld) [Entitic vol] 9.2 fL 6.2-12.0 [facility] Nucleated red blood cell per centageOrdered By: HEALTH ASSESSMENT on 02-16-2025 Nucleated RBC/100 WBC (Bld) [Ratio] 0 % 0-5 [facility] Platelet countOrdered By: HE ALTH ASSESSMENT on 02-16-2025 Platelets (Bld) [#/Vol] 237 10*3/uL 150-450 [facility] Potassium measurement (mass/ volume)Ordered By: HEALTH ASSESSMENT on 02-16-2025 Potassium (Unsp spec) [Mass/Vol] 4.3 mmol/L 3.3-5.1 [facility] RBC Auto (Bld) [#/Vol]Ordere d By: HEALTH ASSESSMENT on 02-16-2025 RBC (Bld) [#/Vol] 4.45 10*6/uL 4.2-5.4 [facility] Screening total cholesterol/ high density lipoprotein (HDL) cholesterol ratioOrdered By: HEALTH ASSESSMENT on 02-16-2025 Cholesterol.total/Choles terol in HDL [Mass ratio] 3.35 {ratio} [facility] Serum creatinine measurement (mass/volume)Ordered By: HEALTH ASSESSMENT on 02-16-2025 Creatinine [Mass/Vol] 0.81 mg/dL 0.70-1.20 [facility] Serum globulin measurementOr dered By: HEALTH ASSESSMENT on 02-16-2025 Globulin (S) [Mass/Vol] 3.0 g/dL 2.2-4.2 [facility] Serum glucose measurement (m ass/volume)Ordered By: HEALTH ASSESSMENT on 02-16-2025 Glucose [Mass/Vol] 101 mg/dL High 70-99 [facility] Serum or plasma alanine gilmore otransferase (ALT) measurementOrdered By: HEALTH ASSESSMENT on 02-16-2025 ALT [Catalytic activity/Vol] 18 U/L <35 [facility] Serum or plasma albumin panda urement (mass/volume)Ordered By: HEALTH ASSESSMENT on 02-16-2025 Albumin [Mass/Vol] 4.3 g/dL 3.5-5.0 [facility] Serum or plasma albumin/glob ulin mass ratioOrdered By: HEALTH ASSESSMENT on 02-16-2025 Albumin/Globulin [Mass ratio] 1.4 {ratio} 0.9-2.4 [facility] Serum or plasma alkaline umer sphatase measurementOrdered By: HEALTH ASSESSMENT on 02-16-2025 ALP [Catalytic activity/Vol] 71 U/L 35-104 [facility] Serum or plasma calcium panda urement (mass/volume)Ordered By: HEALTH ASSESSMENT on 02-16-2025 Calcium [Mass/Vol] 10.0 mg/dL 7.6-11.0 [facility] Serum or plasma cholesterol in HDL measurement (mass/volume)Ordered By: HEALTH ASSESSMENT on 02-16-2025 Cholesterol in HDL [Mass/Vol] 59 mg/dL >40 [facility] Comment on above: National Cholesterol Education Program (NCEP) guidelines:<40 mg/dL: Low HDL-cholesterol (major risk factor for CHD)>= 60 mg/dL: High HDL-cholesterol (negative risk factor for CHD)HDL-cholesterol is affected by a number of factors, e.g. smoking, exercise, hormones, sex and age. Serum or plasma cholesterol measurement (mass/volume)Ordered By: HEALTH ASSESSMENT on 02-16-2025 Cholesterol [Mass/Vol] 198 mg/dL <201 [facility] Comment on above: Cholesterol level, D esirable <200 mg/dLBorderline high cholesterol 200-239 mg/dLHigh cholesterol >=240 mg/dLRecommendations of the NCEP Adult Treatment Panel for the following risk-cutoff thresholds for the [place] population. Serum or plasma lipoprotein a measurement (mass/volume)Ordered By: Taz Blue on 02-16-2025 Lipoprotein a [Mass/Vol] <8.4 nmol/L <75.0 [facility] Comment on above: Results verified b y repeat testingNote: Values greater than or equal to 75.0 nmol/L may indicate an independent risk factor for CHD, but must be evaluated with caution when applied to non- populations due to the influence of genetic factors on Lp(a) across ethnicities.Performed at: - [facility] [id number] [place], [place] [id number] Director: Mario Krishnamurthy PhD, Phone: [phone] Serum or plasma urea nitroge n measurement (mass/volume)Ordered By: HEALTH ASSESSMENT on 02-16-2025 Urea nitrogen [Mass/Vol] 26 mg/dL High 4-19 [facility] Serum or plasma uric acid me asurement (mass/volume)Ordered By: HEALTH ASSESSMENT on 02-16-2025 Urate [Mass/Vol] 4.0 mg/dL 2.6-6.0 [facility] Comment on above: The drugs N-Acetylcy steine and Metamizole may falsely depress this assay. Sodium levelOrdered By: HEAL ASSESSMENT on 02-16-2025 Sodium [Moles/Vol] 139 mmol/L 133-145 [facility] Total proteinOrdered By: HE[facility] ASSESSMENT on 02-16-2025 Protein [Mass/Vol] 7.4 g/dL 5.9-8.4 [facility] Triglycerides measurementOrd ered By: HEALTH ASSESSMENT on 02-16-2025 Triglyceride [Mass/Vol] 162 mg/dL <199 [facility] Comment on above: The drugs N-Acetylcy steine and Metamizole may falsely depress this assay. Normal range: <150 mg/dLBorderline High: 150-199 mg/dLHigh: 200-499 mg/dLVery High: >500 mg/dL White blood cell (WBC) count Ordered By: HEALTH ASSESSMENT on 02-16-2025 WBC (Bld) [#/Vol] 6.4 10*3/uL 4.4-11.0 [facility] Urine Cultureon 01-15-2025 URC Presumptive E. coli [place] Count 80,000-100,000 Presumptive E. coli: REACTION Ampicillin Islt ANNABELLA 8 Ampicillin+Sulbac Islt ANNABELLA <=2 S Cefepime Islt ANNABELLA <=0.12 S cefTRIAXone Islt ANNABELLA <=0.25 S Ciprofloxacin Islt ANNABELLA <=0.06 S B-Lactamase Extended Susc Islt NEG Gentamicin Islt ANNABELLA <=1 S levoFLOXacin Islt ANNABELLA <=0.12 S Meropenem Islt ANNABELLA <=0.25 S Nitrofurantoin Islt ANNABELLA <=16 S Pip+Tazo Islt ANNABELLA <=4 S TMP SMX Islt ANNABELLA <=20 S Normal [facility] Comment on above: Performed By: #### M 100.6563 ####[facility] [id number] [place], [address] Laboratory - Chemistry and C hemistry - challengeOrdered By: Carmelo Robledo on 01-13-2025 Bilirubin Ql (U) Negative [facility] Glucose Ql (U) Negative [facility] Ketones Ql (U) Negative [facility] pH (U) 6.5 [pH] [facility] Specific gravity (U) [Rel density] 1.015 [facility] Urobilinogen (U) [Mass/Vol] 0.0997475 mg/dL [facility] Laboratory - Hematology and Cell countsOrdered By: Carmelo Robledo on 01-13-2025 Hemoglobin Ql (U) Hemolyzed [facility] Laboratory - Specimen inform ationOrdered By: Carmelo Robledo on 01-13-2025 Clarity (U) Cloudy [facility] Color (U) YELLOW [facility] Laboratory - UrinalysisOrder ed By: Carmelo Robledo on 01-13-2025 Nitrite Ql (U) Negative [facility] Protein Ql (U) 2+ [facility] No Panel InformationOrdered By: Carmelo Robledo on 01-13-2025 Urine Leukocytes Positive [facility] Urine Non-Hemolyzed Blood Large [facility] Urgent Care Visit Reporton 0 01-13-2025 Urgent Care Visit Report [facility] [address] [place] [address] OFFICE VISIT Date of Service: 01/13/25 MR#: [id number] Acct: [id number] Name: ENRIQUE RESTREPO Rep #: [id number] : 1965 Provider: MARICEL Robledo Age/Sex: 59/F Location: [facility] Status: Signed Intake Vital Signs 01/02/25 08:06 01/13/25 07:30 Height 5 ft 3.5 in Weight: 160 lb 4 oz BMI 27.9 BP 122/80 H Position Sitting Respiration 16 Pulse 88 Temp 98.8 F Temp Source Oral Pulse Oximetry (%) 98 Oxygen Delivery Method room air Intake Visit Reasons: CONCERN FOR UTI Chief Complaint: UTI Accompanied by: Self Allergies No Known Allergies Allergy (Verified 01/13/25 07:36) Medications ???Medication ???Instructions ???Recorded ???Confirmed ???Type ascorbate calcium (vitamin C) 500 500 mg PO DAILY 06/24/19 01/13/25 History mg tablet lactobacillus combination no.8 3 3,000 mmu cells PO DAILY 06/24/19 01/13/25 History billion cell capsule (Adult Probiotic) multivitamin,tx-iron-mi nerals 1 tab PO DAILY 06/24/19 01/13/25 H istory (Complete Multivitamin tablet) cholecalciferol (vitamin D3) 10 10 mcg PO DAILY 09/28/23 01/13/25 History mcg (400 unit) capsule coenzyme Q10 75 mg capsule (Ultra 75 mg PO DAILY 09/28/23 01/13/25 History CoQ10) lysine 1,000 mg tablet 600 mg PO DAILY 09/28/23 01/13/25 History magnesium citrate 100 mg tablet 400 mg PO DAILY 09/28/23 01/13/25 History magnesium glycinate 100 mg (as 200 mg PO DAILY 09/28/23 01/13/25 History glycinate) tablet magnesium oxide 250 mg PO DAILY 09/28/23 01/13/25 History garlic 300 mg capsule 300 mg PO QDAY 01/02/25 01/13/25 H istory meloxicam 7.5 mg tablet 7.5 mg PO BID Pain #60 tabs 01/13/25 Rx cephalexin 500 mg capsule 500 mg PO BID 5 days #10 caps 07/0801/13/25 Rx Nurse's Note: Patient here for concerns for a UTI. Patient states it started around 2am with urge to urinate. Patient also says her urine has a hint of pink. Patient also has lower back pain and chills with burning after urination. [facility] Medical History (Updated 01/13/25 @ 07:45 by MARICEL Rosa) Acute UTI Surgical History S/P tendon repair Normal colonoscopy Family History Father , of [place] at 63 Myocardial infarction, Onset Age: 63 2002 Grandmother Diabetes Aunt Myocardial infarction Uncle Myocardial infarction Grandfather Arthritis Social History household members: spouse and children housing: house current occupational status: employed current occupation: [employer] Smoking Status: Never smoker alcohol intake: never substance use type: does not use caffeine: Yes what type of physical activity do you participate in: other details: crossfit frequency: 3-4 times per week seatbelt use: always do you feel safe at home: Yes additional social history: Crow [facility] HPI Chief Complaint: UTI Details: ENRIQUE RESTREPO, is a 59 F who presents to the office today for HPI: Patient presents today for concerns of possible UTI that started about 6 hours prior to arrival. She notes urinary urgency, frequency, hematuria, and low back pain. Denies any nausea vomiting or fever. ROS: As noted in HPI Physical Exam: VITALS: Reviewed. GEN: Healthy appearing, well-developed, NAD. PSYCH: AOx3. Normal memory, mood, and affect. HEENT -Eyes: -No discharge or redness; -Ears: -Mouth and throat: Moist mucous membranes. NECK: CV: Regular rate and rhythm LUNGS: Normal respiratory effort. Lungs clear bilaterally. SKIN: Warm, well perfused. No skin rashes or abnormal lesions noted. MSK: Normal gait. NEURO: Ambulating with no limitations. Normal muscle strength and tone. No focal deficits. Results POC Urinalysis Dip (Clinic) Office Urine Color YELLOW Last Edit by Angella Souza MA on 01/13/25 07:41 Office Urine Clarity Cloudy Last Edit by Angella Souza MA on 01/13/25 07:41 Office Urine Glucose Negative Last Edit by Angella Souza MA on 01/13/25 07:41 Office Urine Ketones Negative Last Edit by Angella Souza MA on 01/13/25 07:41 Off Ur Spec Hollis 1.015 Last Edit by Angella Souza MA on 01/13/25 07:41 Office Urine pH 6.5 Last Edit by Angella Souza MA on 01/13/25 07:41 Office Urine Bilirubin Negative Last Edit by Angella Souza MA on 01/13/25 07:41 Office Urine Urobilinogen 0.2 mg/dL Last Edit by Angella Souza MA on 01/13/25 07:41 Office Urine Blood Hemolyzed Last Edit by Angella Souza MA on 01/13/25 07:41 Office Urine Blood Hemolyzed Large Last Edit by Angella Souza MA on 01/13/25 07:41 Office Urine Protein 2+ Last Edit (more content not included)... Normal [facility] Urine cultureOrdered By: Carmelo Robledo on 01-13-2025 Bacteria identified Cx Nom (U) Presumptive E. coli Abnormal [facility] Orthopedic Visit Reporton Orthopedic Visit Report [facility] [address] [place] [address] OFFICE VISIT Date of Service: 01/02/25 MR#: [id number] Acct: [id number] Name: ENRIQUE RESTREPO Rep #: [id number] : 1965 Provider: CARA Prasad Age/Sex: 59/F Location: [facility] Status: Signed Intake Vital Signs 10/16/24 14:43 12/25/24 10:07 01/02/25 08:06 Height 5 ft 3.5 in 5 ft 3.5 in 5 ft 3.5 in Weight: 167 lb 6 oz 160 lb 4 oz BMI 29.2 27.9 BP 130/79 H Intake Visit Reasons: LUMBAR SPINE Chief Complaint: Lumbar Spine Pain Accompanied by: Self Is patient in pain?: Yes Pain scale (1-10): 4 Allergies No Known Allergies Allergy (Verified 01/02/25 08:07) Medications ???Medication ???Instructions ???Recorded ???Confirmed ???Type ascorbate calcium (vitamin C) 500 500 mg PO DAILY 06/24/19 01/02/25 History mg tablet lactobacillus combination no.8 3 3,000 mmu cells PO DAILY 06/24/19 01/02/25 History billion cell capsule (Adult Probiotic) multivitamin,tx-iron-mi nerals 1 tab PO DAILY 06/24/19 01/02/25 H istory (Complete Multivitamin tablet) cholecalciferol (vitamin D3) 10 10 mcg PO DAILY 09/28/23 01/02/25 History mcg (400 unit) capsule coenzyme Q10 75 mg capsule (Ultra 75 mg PO DAILY 09/28/23 01/02/25 History CoQ10) lysine 1,000 mg tablet 600 mg PO DAILY 09/28/23 01/02/25 History magnesium citrate 100 mg tablet 400 mg PO DAILY 09/28/23 01/02/25 History magnesium glycinate 100 mg (as 200 mg PO DAILY 09/28/23 01/02/25 History glycinate) tablet magnesium oxide 250 mg PO DAILY 09/28/23 01/02/25 History garlic 300 mg capsule 300 mg PO QDAY 01/02/25 01/02/25 H istory meloxicam 7.5 mg tablet 7.5 mg PO BID nausea 01/02/2512/13 History PFSH Surgical History S/P tendon repair Normal colonoscopy Family History Father , of [place] at 63 Myocardial infarction, Onset Age: 63 2002 Grandmother Diabetes Aunt Myocardial infarction Uncle Myocardial infarction Grandfather Arthritis Social History household members: spouse and children housing: house current occupational status: employed current occupation: [employer] Smoking Status: Never smoker alcohol intake: never substance use type: does not use caffeine: Yes what type of physical activity do you participate in: other details: crossfit frequency: 3-4 times per week seatbelt use: always do you feel safe at home: Yes additional social history: Crow [facility] LUMBAR SPINE Details: This documentation accurately reflects the service provided and the decisions made by me, CARA Prasad 01/02/25 0802. Part of today???s visit was documented by Francisca Valera ATC, acting as scribe. ENRIQUE RESTREPO is a 59 year old F here today for lumbar spine pain. Patient rates her pain a 4/10 today. Patient states she first injured the back in March and she had x-rays and then did physical therapy. She states by June the back felt much better. In October she was doing yard work and she feels like she re-aggravated the back. She states she then went on vacation and then got into [facility] again and that's when the MRI was ordered and done. She states over the last week the back has felt better as she has been doing the physical therapy exercises on her own. She states she has been taking an anti-inflammatory prescription and Tylenol for the pain but the last couple of days she hasn't had to take much. She states she tried switching to a firmer bed and it has helped. She describes the pain in the right lumbar spine and down into her buttocks and down the posterior right leg. Says that this typically stops at the knee. She denies any left-sided involvement. She denies numbness/tingling down the leg. She states previously she did have numbness in her right pinky toe but it has since gone away. She denies any injections or prior surgery to the back. She is not currently in physical therapy but she is doing the exercises on her own. She states she did have an appointment scheduled but wanted to go over the MRI and figure out what she should specifically do. Walking does not increase her pain. Her pain is not a constant issue and says that it comes and goes. No diabetes, no heart or lung issues. No blood thinners. Ortho Exam General General: Yes no acute distress Neurologic: Yes alert and Yes oriented x3 Psychologic: Yes reasonable and appropriate Spine SPINE TESTING CERVICAL THORACIC LUMBAR Musculoskeletal Strength 0=absent - 5=normal Details: Neurological exam of the lower extremities shows 5x5 power. Normal sensations across all dermatomes. No hyperreflexia. No midline or p (more content not included)... Normal [facility] L/S Spine Bending Flex/Merrill 12-30-2024 L/S Spine Bending Flex/Ext [facility] [address] [place], [place] [address] L/S Spine Bending Flex/Ext MR#: [id number] Acct: [id number] Name: ENRIQUE RESTREPO Rep #: [id number] : 1965 F 59 From: Bao Schwartz MD PCP: Dr. Taz Blue MD Status: REG CLI Study: L/S Spine Bending Flex/Ext Date of Exam: 12/30 Exam# [id number] Ordering Dr: Sara Marcial PROCEDURE: L/S SPINE BENDING FLEX/EXT 12/30/2024 REASON FOR EXAM: BACK PAIN TECHNIQUE: L/S SPINE BENDING FLEX/EXT COMPARISON: None FINDINGS: Vertebral body height and alignment are maintained. There is no spondylolisthesis or instability demonstrated on the flexion or extension views. There is loss of disc height throughout the lumbar region. There is moderate facet sclerosis. Mineralization is normal. There is no visible atherosclerosis. RAD/L/S Spine Bending Flex/Ext IMPRESSION: There is degenerative disc disease throughout the lumbar region. There is no instability demonstrated. Reading Location: [id number] CC: CARA Prasad; Dr. Taz Blue MD Case Technician: Signed Normal [facility] Office Visit Reporton 2024 Office Visit Report [facility] [address] [facility] 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 RSV: Negative. 10/21/24 1427 Date Rudy MARROQUIN Cosigner Signature: Date (if applicable) CC: Normal [facility] PAP IG HPV APTIMA 16/18,45on 10-21-2024 ADEQ Comment Normal . [facility] Comment on above: Order Comment: Speci men Comment: [id number] Specimen Comment: No. of containers..01 ThinPrep Vial Result Comment: Sati sfactory for evaluation. Endocervical component may not be distinguished in cases of atrophy. Performed By: #### L 7400.0280 #### [facility] [address] [place], [place], [id number] COMM . Normal . [facility] Comment on above: Order Comment: Speci men Comment: [id number] Specimen Comment: No. of containers..01 ThinPrep Vial Performed By: #### L 7400.0280 #### [facility] [address] [place], [address] COMMENT Comment Normal . [facility] Comment on above: Order Comment: Speci men Comment: [id number] Specimen Comment: No. of containers..01 ThinPrep Vial Result Comment: This liquid based ThinPrep(R) pap test was screened with the use of an image guided system. Performed By: #### L 7400.0280 #### [facility] [address] [place], [place], [address] DIAG Comment Normal . [facility] Comment on above: Order Comment: Speci men Comment: [id number] Specimen Comment: No. of containers..01 ThinPrep Vial Result Comment: NEGA TIVE FOR INTRAEPITHELIAL LESION OR MALIGNANCY. CELLULAR CHANGES ASSOCIATED WITH ATROPHY ARE PRESENT. Performed By: #### L 7400.0280 #### [facility] [address] [place], [place], [id number] HPV APTIMA, HR Negative Normal Negative [facility] Comment on above: Order Comment: Speci men Comment: [id number] Specimen Comment: No. of containers..01 ThinPrep Vial Result Comment: This nucleic acid amplification test detects fourteen high- risk HPV types (16,18,31,33,35,39,45,51,52,56,58,59,66,68) without differentiation. Performed By: #### L 7400.0280 #### [facility] [address] [place], [address] HPV Tabitha Rfx Comment Normal . [facility] Comment on above: Order Comment: Speci men Comment: [id number] Specimen Comment: No. of containers..01 ThinPrep Vial Result Comment: Crit eria not met, HPV Genotype not performed. Performed at: - [address] [id number] Director Corporate Security: June Magaña MD, Phone: [phone] Performed at: = - [facility] [id number] Director Corporate Security: June Magaña MD, Phone: [phone] Performed By: #### L 7400.0280 #### [facility] [address] [place], [address] PAPSMR Comment Normal . [facility] Comment on above: Order Comment: Speci men Comment: [id number] Specimen Comment: No. of containers..01 ThinPrep Vial Result Comment: The Pap smear is a screening test designed to aid in the detection of premalignant and malignant conditions of the uterine cervix. It is not a diagnostic procedure and should not be used as the sole means of detecting cervical cancer. Both false-positive and false-negative reports do occur. Performed By: #### L 7400.0280 #### [facility] [address] [place], [address] PERFORM Comment Normal . [facility] Comment on above: Order Comment: Speci men Comment: [id number] Specimen Comment: No. of containers..01 ThinPrep Vial Result Comment: Emili Baker, Pellet Mill Operator (ASCP) Performed By: #### L 7400.0280 #### [facility] [address] [place], [address] Cervical or vaginal specimen microscopic examination by liquid based cytology (reportOrdered By: Carmen Perez on 10-16-2024 Cytology report Cyto stain.thin prep Doc (Cvx/Vag) Comment . [facility] Comment on above: Criteria not met, HP V Genotype not performed.Performed at: [facility] [address] [id number] Director: June Magaña MD, Phone: [phone] at: =[facility] [id number] Director: June Magaña MD, Phone: [phone] Cervical or vagninal specime n microscopic examination by cytology stain (reported asOrdered By: Carmen Perez on 10-16-2024 Cytology report Cyto stain Doc (Cvx/Vag) Comment . [facility] Comment on above: The Pap smear is a s creening test designed to aid in thedetection of premalignant and malignant conditions of theuterine cervix. It is not a diagnostic procedure andshould not be used as the sole means of detecting cervicalcancer. Both false-positive and false-negative reports dooccur. Detection in cervical specim en of any of human papilloma virus (HPV) 16, 18, 31, 33,Ordered By: Carmen Perez on 10-16-2024 HPV 16+18+31+33+35+39+45+51+ 52+56+58+59+66+68 DNA Probe+sig amp Ql (Cvx) Negative Negative [facility] Comment on above: This nucleic acid am plification test detects fourteen high-risk HPV types (16,18,31,33,35,39,45,51,52,56,58,59,66,68)without differentiation. Laboratory - CytologyOrdered By: Carmen Perez on 10-16-2024 Pellet Mill Operator Cyto stain Nom (Cvx/Vag) [ID] Comment . [facility] Comment on above: Yoandy Lindseyl vinod (ASCP) Laboratory - Miscellaneous t estsOrdered By: Carmen Perez on 10-16-2024 Service comment (Unsp spec) [Interp] . . [facility] No Panel InformationOrdered By: Carmen Perez on 10-16-2024 Pap Smear Specimen Adequacy Comment . [facility] Comment on above: Satisfactory for elia luation. Endocervical component may not bedistinguished in cases of atrophy. 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: No Is patient in pain?: No Allergies No Known Allergies Allergy (Verified 10/16/24 14:45) Medications ???Medication ???Instructions ???Recorded ???Confirmed ???Type ascorbate calcium (vitamin C) 500 500 mg PO DAILY 06/24/19 10/16/24 History mg tablet lactobacillus combination no.8 3 3,000 mmu cells PO DAILY 06/24/19 10/16/24 History billion cell capsule (Adult Probiotic) multivitamin,tx-iron-mi nerals 1 tab PO DAILY 06/24/19 10/16/24 H istory (Complete Multivitamin tablet) cholecalciferol (vitamin D3) 10 10 mcg PO DAILY 09/28/23 10/16/24 History mcg (400 unit) capsule coenzyme Q10 75 mg capsule (Ultra 75 mg PO DAILY 09/28/23 10/16/24 History CoQ10) lysine 1,000 mg tablet 600 mg PO DAILY 09/28/23 10/16/24 History magnesium citrate 100 mg tablet 400 mg PO DAILY 09/28/23 10/16/24 History magnesium glycinate 100 mg (as 200 mg PO DAILY 09/28/23 10/16/24 History glycinate) tablet magnesium oxide 250 mg PO DAILY 09/28/23 10/16/24 History benzonatate 200 mg capsule 200 mg PO TID PRN cough #20 caps 0 09/01/24 10/16/24 Rx methylprednisolone 4 mg tablets in See Rx Instructions PO PER PKG D IR 09/01/24 10/16/24 Rx a dose pack (Medrol (Joseph)) #21 tabs Is last menstrual period known: No Post menopausal: Yes Patient : No : No PFSH Surgical History S/P tendon repair Normal colonoscopy Family History Father , of [place] at 63 Myocardial infarction, Onset Age: 63 2002 Grandmother Diabetes Aunt Myocardial infarction Uncle Myocardial infarction Grandfather Arthritis Social History household members: spouse and children housing: house current occupational status: employed current occupation: [employer] Smoking Status: Never smoker alcohol intake: never substance use type: does not use caffeine: Yes what type of physical activity do you participate in: other details: crossfit frequency: 3-4 times per week seatbelt use: always do you feel safe at home: Yes additional social history: Crow History 3 Elective abortions Hx Para 3 Spontaneous abortions Hx # Term Pregnancies Ectopic pregnancies Hx # Pregnancies Multiple births # of living children HPI Encounter for routine gynecological examination Details: ENRIQUE RESTREPO is a 59 year old who presents for annual exam. She reports no issues or concerns today. Doing well overall. Last PAP: 2019; normal. HPV neg. History of abnormal PAP: no. Last mammogram: 2023; normal. History of abnormal mammogram: dense tissue Colon cancer screenin yrs ago; Camila? Other preventative health care screenings: Dr. Blue; PCP. Female Reproductive History Questions: metorrhagia: No, sexually active: Yes (vasectomy), dyspareunia: No and PCB: No ROS Const Constitutional: Denies chills, fatigue, fever(s), headache(s) or weight loss Eyes Eyes: Denies change in vision ENT ENT: Denies dizziness Cardio Card: Denies chest pain at rest or palpitations Resp Resp: Denies cough GI GI: Denies abdominal pain, constipation or nausea : Reports vaginal dryness; Denies difficulty voiding, dysuria, hematuria, nipple discharge, pelvic pain, prolapse symptoms, urinary incontinence, vaginal discharge, vaginal odor or vaginal pruritus Skin Skin/Breast: Denies alopecia, rash, breast mass, breast pain, breast skin changes or nipple discharge Neuro Neuro: Denies dizziness Psych Psych: Denies anxiety or depression Endo Endo: Denies cold intolerance, excessive sweating or heat intolerance Exam Const General: cooperative, healthy appearing, comfortable, no acute distress, well groomed and well hydrated Nutritional Appearance: well nourished Orientation: alert, awake and oriented x3 HENMT Head: normal to inspection and normocephalic Ears: hearing grossly normal bilaterally and external ears normal Nose: external nose normal Face and sinus: normal facial exam Eyes General: appearance normal, both eyes and all related structures Neck Neck: normal visual inspection, full ROM and no lymphadenopathy Thyroid: t (more content not included)... Normal [facility] Court Monitor Office Visit Reporton 09-23-2024 Court Monitor Office Visit Report [facility] [address], [address] [place] [address] OFFICE VISIT Date of Service: 09/23/24 MR#: [id number] Acct: [id number] Name: ENRIQUE RESTREPO Rep #: [id number] : 1965 Provider: KAYLA singh Age/Sex: 59/F Location[place] [facility] Status: Signed Intake Vital Signs 09/01/24 09:55 09/23/24 08:28 09/23/24 08:35 Height 5 ft 3.5 in 5 ft 3.5 in 5 ft 3.5 in Weight: 160 lb 166 lb 4 oz BMI 27.8 29.0 BP 92/54 L 143/96 H Blood Pressure Location Lt brachial Position Sitting Respiration 16 Pulse 95 Pulse Source Monitor Temp 99.0 F Pulse Oximetry (%) 94 Oxygen Delivery Method room air Intake Visit Reasons: Vaginal Cyst Telephone Sterilizer Required: No Is patient in pain?: No Allergies No Known Allergies Allergy (Verified 09/23/24 08:28) Medications ???Medication ???Instructions ???Recorded ???Confirmed ???Type ascorbate calcium (vitamin C) 500 500 mg PO DAILY 06/24/19 09/23/24 History mg tablet lactobacillus combination no.8 3 3,000 mmu cells PO DAILY 06/24/19 09/23/24 History billion cell capsule (Adult Probiotic) multivitamin,tx-iron-mi nerals 1 tab PO DAILY 06/24/19 09/23/24 H istory (Complete Multivitamin tablet) cholecalciferol (vitamin D3) 10 10 mcg PO DAILY 09/28/23 09/23/24 History mcg (400 unit) capsule coenzyme Q10 75 mg capsule (Ultra 75 mg PO DAILY 09/28/23 09/23/24 History CoQ10) lysine 1,000 mg tablet 600 mg PO DAILY 09/28/23 09/23/24 History magnesium citrate 100 mg tablet 400 mg PO DAILY 09/28/23 09/23/24 History magnesium glycinate 100 mg (as 200 mg PO DAILY 09/28/23 09/23/24 History glycinate) tablet magnesium oxide 250 mg PO DAILY 09/28/23 09/23/24 History benzonatate 200 mg capsule 200 mg PO TID PRN cough #20 caps 0 09/01/24 09/23/24 Rx methylprednisolone 4 mg tablets in See Rx Instructions PO PER PKG D IR 09/01/24 09/23/24 Rx a dose pack (Medrol (Joseph)) #21 tabs Is last menstrual period known: No Post menopausal: Yes Patient : No : No Control Method: menopause Nurse's Note: pt states she noticed a vaginal cyst on sunday or sunday and called into the office for an appointment. on sunday, the cyst "burst" and pt noted discharge and bleeding immediately afterwards. pt has hx of vaginal cysts which were removed years ago. pt states she now has itching every now and then. PFSH Surgical History S/P tendon repair Normal colonoscopy Family History Father , of [place] at 63 Myocardial infarction, Onset Age: 63 2002 Grandmother Diabetes Aunt Myocardial infarction Uncle Myocardial infarction Grandfather Arthritis Social History household members: spouse and children housing: house current occupational status: employed current occupation: [employer] Smoking Status: Never smoker alcohol intake: never substance use type: does not use caffeine: Yes what type of physical activity do you participate in: other details: crossfit frequency: 3-4 times per week seatbelt use: always do you feel safe at home: Yes additional social history: Crow HPI Vaginal Cyst Details: ENRIQUE RESTREPO is a 59 year old who presents for vaginal bump felt on sunday, non painful. on sunday saw discharge after feeling a burst. has mild vaginal itching since, no further discharge or pain. History 3 Elective abortions Hx Para 3 Spontaneous abortions Hx # Term Pregnancies Ectopic pregnancies Hx # Pregnancies Multiple births # of living children ROS GI GI: Reports system reviewed and no additional complaints, except as documented : Reports system reviewed and no additional complaints, except as documented Skin Skin/Breast: Reports system reviewed and no additional complaints, except as documented Psych Psych: Reports system reviewed and no additional complaints, except as documented Exam Const General: cooperative Resp Effort Inspection: normal respiratory effort and able to speak in complete sentences External Female Exam: normal external appearance Speculum Exam - Vagina: cyst (resolving,3 oclock 1cm, soft) Coding Level of Care Code Off vis,est,level 2 Diagnoses Vaginal wall cyst N89.8 Assessment and Plan Assessment and Plan (1) Vaginal wall cyst: Status: Acute Comment: resolving. infection signs reviewed. has annual in october for follow up. will start using revaree for increasing moisture 09/23/24 0921 Date Porsha DIXON Cosigner Signature: Date (more content not included)... Normal [facility] Laboratory - Microbiology an d Antimicrobial susceptibilityOrdered By: Rudy Taylor on 04-21-2025 SARS-CoV-2 (COVID-19) RNA TEDDY+probe Ql (Unsp spec) Not detected [facility] Urgent Care Visit Reporton 0 09-01-2024 Urgent Care Visit Report [facility] [address], [address] [place] [address] OFFICE VISIT Date of Service: 09/01/24 MR#: [id number] Acct: [id number] Name: ENRIQUE RESTREPO Rep #: [id number] : 1965 Provider: CARA Dowling Age/Sex: 59/F Location: [facility] Status: Signed Intake Vital Signs 10/05/23 08:10 09/01/24 09:55 Height 5 ft 3.5 in 5 ft 3.5 in Weight: 160 lb BMI 27.8 BP 92/54 L Blood Pressure Location Lt brachial Position Sitting Respiration 16 Pulse 95 Pulse Source Monitor Temp 99.0 F Temp Source Oral Pulse Oximetry (%) 94 Oxygen Delivery Method room air Intake Visit Reasons: CONCERN FOR BRONCHITIS, FEVER Chief Complaint: fever, productive cough, chest congestion Telephone Sterilizer Required: No Accompanied by: Self Is patient in pain?: No Allergies No Known Allergies Allergy (Verified 09/01/24 09:55) Medications ???Medication ???Instructions ???Recorded ???Confirmed ???Type ascorbate calcium (vitamin C) 500 500 mg PO DAILY 06/24/19 09/01/24 History mg tablet lactobacillus combination no.8 3 3,000 mmu cells PO DAILY 06/24/19 09/01/24 History billion cell capsule (Adult Probiotic) multivitamin,tx-iron-mi nerals 1 tab PO DAILY 06/24/19 09/01/24 H istory (Complete Multivitamin tablet) cholecalciferol (vitamin D3) 10 10 mcg PO DAILY 09/28/23 09/01/24 History mcg (400 unit) capsule coenzyme Q10 75 mg capsule (Ultra 75 mg PO DAILY 09/28/23 09/01/24 History CoQ10) lysine 1,000 mg tablet 600 mg PO DAILY 09/28/23 09/01/24 History magnesium citrate 100 mg tablet 400 mg PO DAILY 09/28/23 09/01/24 History magnesium glycinate 100 mg (as 200 mg PO DAILY 09/28/23 09/01/24 History glycinate) tablet magnesium oxide 250 mg PO DAILY 09/28/23 09/01/24 History benzonatate 200 mg capsule 200 mg PO TID PRN cough #20 caps 0 09/01/24 09/01/24 Rx methylprednisolone 4 mg tablets in See Rx Instructions PO PER PKG D IR 09/01/24 09/01/24 Rx a dose pack (Medrol (Joseph)) #21 tabs PFSH Surgical History S/P tendon repair Normal colonoscopy Family History Father , of [place] at 63 Myocardial infarction, Onset Age: 63 2002 Grandmother Diabetes Aunt Myocardial infarction Uncle Myocardial infarction Grandfather Arthritis Social History household members: spouse and children housing: house current occupational status: employed current occupation: [employer] Smoking Status: Never smoker alcohol intake: never substance use type: does not use caffeine: Yes what type of physical activity do you participate in: other details: crossfit frequency: 3-4 times per week seatbelt use: always do you feel safe at home: Yes additional social history: Crow [facility] HPI Chief Complaint: fever, productive cough, chest congestion Details: ENRIQUE RESTREPO, is a 59 F who presents to the office today for [facility] for approximately 3-4 day history of persistent chills, cough. No c/o fever, AMAYA, myalgias, fatigue, congestion/ runny nose, nausea, and diarrhea. Patient notes no complaints of chest pain or shortness of breath or dyspnea on exertion. Several close contacts recently dx???d w/ similar URI complaints. No [id number]-tfordkk taken to assist. No other associated symptoms and no other alleviating/aggravating factors. ROS Const Constitutional: No other (As above) Exam Const General: cooperative, healthy appearing and no acute distress Orientation: alert, awake and oriented x3 HENMT Head: normal to inspection Ears: hearing grossly normal bilaterally, external ears normal, TM's normal bilaterally and EAC's normal Nose: external nose normal, nares normal, septum normal and clear nasal discharge Face and sinus: normal facial exam, sinuses nontender and face symmetric Mouth: oral mucosae normal, lip normal, tongue normal and oropharynx normal Throat: posterior oropharynx normal, tonsils normal, uvula midline and no postnasal drainage Eyes General: appearance normal, both eyes and all related structures Neck Neck: normal visual inspection, full ROM, no lymphadenopathy, no meningeal signs and supple Neck mass: No Thyroid: thyroid normal Lymphatic: no lymphadenopathy noted Chest Chest palpation inspection: normal inspection of the chest Resp Effort Inspection: normal respiratory effort, able to speak in complete sentences and cough Quality of cough: wet (nonproductive in office today) Auscultation: Bilateral: Clear to Auscultation Cardio Palpation: normal PMI Rate: tachycardic Rhythm: regular rhythm Heart Sounds: S1 normal, S2 normal, no gallops, no murmurs and n (more content not included)... Normal [facility] Knee 4 or More Viewson 05-01 Knee 4 or More Views [facility] [address] [place] [address] [id number] Knee 4 or More Views MR#: [id number] Acct: [id number] Name: ENRIQUE RESTREPO Rep #: [id number] : 1965 F 58 From: Wyatt Dickson MD PCP: Dr. Taz Blue MD Status: REG CLI Study: Knee 4 or More Views Date of Exam: 05/01/24 Exam# [id number] Ordering Dr: Evan Gaffney PA-C [id number] EXAM: XR RIGHT KNEE COMPLETE, 4 OR MORE VIEWS CLINICAL INDICATION: PAIN TECHNIQUE: Four or more views of the right knee. COMPARISON: No relevant prior studies available. FINDINGS: BONES/JOINTS: Unremarkable. No acute fracture. No subluxation. Normal alignment. Preservation of the joint space. No sclerotic or destructive changes observed. SOFT TISSUES: Unremarkable. No soft tissue swelling or gas. No radiopaque foreign body. RAD/Knee 4 or More Views IMPRESSION: Negative right knee x-rays. Electronically Signed: Wyatt Dickson MD at 23:42 EST , CC: BHARTI Gaffney; Dr. Taz Blue MD Case Technician: Signed Normal [facility] CNOVon 10-12-2022 CNOV Office Visit (UCWSTR ) ENRIQUE RESTREPO ([id number]) 1965 F Date Time Provider Department 10/12/22 1:45 PM BRIDGETJACK LIND [facility] During your visit today, we recorded the following information about you: Temperature Pulse Respiration Blood pressure 98.8 degrees 92/minute 18/minute 128/80 Weight 71.6 kg Jack JODI Ortiz.PLANNING SPECIALIST 10/12/2022 2:39 PM Signed Subjective HPI Nontoxic-appearing female presents urgent care chief complaint insect bite. Duration of symptoms 2 to 3 days. Associated symptoms redness and itching. States few days ago she noticed a what she appeared to be infected on her right lower mcintyre. The next morning she woke up and she has some itching and redness to this area. No pain. Has been using anti-itch creams does help. But some antibiotic cream on it today. Denies any pain.. Denies any fever body aches chills productive cough chest pain shortness of breath pleuritic pain hemoptysis nausea vomiting abdominal pain change in bowel or bladder habits. Past medical history prescription medication use and allergies reviewed. .Patient presents with: insect bite right mcintyre: X 2-3 days History reviewed. No pertinent past medical history. History reviewed. No pertinent surgical history. ALLERGIES Patient has no known allergies. MEDICATIONS No prescriptions on file. History reviewed. No pertinent family history. Social History Tobacco Use Smoking status: Never Smokeless tobacco: Never BP 128/80 Pulse 92 Temp 37.1 ?C (98.8 ?F) (Tympanic) Resp 18 Wt 71.6 kg (157 lb 12.8 oz) SpO2 97% Review of Systems Constitutional: Negative for chills, fever and malaise/fatigue. HENT: Negative for congestion, ear discharge, ear pain, sinus pain and sore throat. Eyes: Negative for blurred vision, pain, discharge and redness. Respiratory: Negative for cough, hemoptysis, sputum production, shortness of breath, wheezing and stridor. Cardiovascular: Negative for chest pain. Gastrointestinal: Negative for abdominal pain, diarrhea, nausea and vomiting. Musculoskeletal: Negative for myalgias. Skin: Positive for itching. Negative for rash. Neurological: Negative for dizziness and headaches. Objective Physical Exam Constitutional: General: She is not in acute distress. Appearance: She is not diaphoretic. HENT: Head: Normocephalic. Eyes: Conjunctiva/sclera: Conjunctivae normal. Pupils: Pupils are equal, round, and reactive to light. Cardiovascular: Rate and Rhythm: Normal rate and regular rhythm. Heart sounds: Normal heart sounds. Pulmonary: Effort: Pulmonary effort is normal. No tachypnea, accessory muscle usage or respiratory distress. Breath sounds: Normal breath sounds. No stridor. Abdominal: Palpations: Abdomen is soft. Tenderness: There is no abdominal tenderness. Musculoskeletal: Cervical back: Normal range of motion and neck supple. Skin: General: Skin is warm and dry. Comments: 1 cm x 1 cm area of redness. Some vesicles noted. No surrounding erythema edema. No remote redness. No desquamation of skin. No foreign bodies. No area of fluctuance. No area of induration. Neurological: Mental Status: She is alert and oriented to person, place, and time. ASSESSMENT/PLAN: 1. Insect bite of right lower extremity, initial encounter - ICD9: 916.4, E906.4, ICD10: S80.861A, W57.XXXA Diagnosis insect bite. No area of fluctuance noted. Topical antibiotic ointment prescribed. Use antihistamines as needed. Patient was educated on supportive therapies. Patient will follow up with primary care provider as needed. Patient was instructed to immediately proceed to emergency room for any new, worsening, or symptoms lasting longer than anticipated. The patient's clinical presentation is otherwise unremarkable at this time. Based on exam and clinical finding, the patient is stable for discharge. Plan of care was discussed with patient. Patient verbalizes understanding and agrees to plan of care. This note was generated using [employer] software. It may contain errors in wording, punctuation, or spelling. Jack Ortiz APRN.PLANNING SPECIALIST Allergies As of Date: 10/12/2022 (No Known Allergies) Date Reviewed: 10/12/2022 Reviewed by: Jack Ortiz APRN.PLANNING SPECIALIST - Fully Assessed Reason for Visit: insect bite right mcintyre [Other] Cmt: X 2-3 days Primary Visit Diagnosis:Insect bite of right lower extremity, initial encounter [S80.861A, W57.XXXA] Order(s):mupirocin (BACTROBAN) 2 % ointmentApply to affected area twice daily for 5 days.Disp: 30 gRfl: 0 Prescriptions as of 10/12/2022 - mupirocin (BACTROBAN) 2 % ointment Apply to affected area twice daily for 5 days. Problem List As Of Date: 10/12/2022 (None) Prescriptions ordered this encounter Disp Refills Start End MUPIROCIN 2 % TOPICAL OINTMENT 30 g 0 10/12/2022 10/17/2022 Route: TOPICAL Sig: Apply to affected (more content not included)... Normal [facility] XR CHEST 1 VIEWon 10-17-2020 XR CHEST 1 VIEW ORIGINAL XR CHEST 1 VIEW PORTABLE AP TIME: 11:38 AM CLINICAL STATEMENT: SOB COMPARISON: None FINDINGS: The cardiomediastinal contours are normal. There is no consolidation, vascular congestion, pleural effusion, or pneumothorax. No displaced fractures are identified. IMPRESSION: No acute radiographic findings. Interpreted By: Paul Daigle MD Preliminary Report By: Paul Daigle MD Electronically Signed By: Paul Daigle MD Dictated Date: 10/17/2020 11:58:23 AM Prelim Date: 10/17/2020 11:58:23 AM Sign Date: 10/17/2020 11:58:36 AM Ordering Provider:Dante Blevins [facility] ([place]) CBCOrdered By: Sapna Argueta on 10-15-2020 Hematocrit (Bld) [Volume fraction] 42.4 % 35.0 - 47.0 % [facility] Work Phone: Hemoglobin.gastrointesti nal spec 1 Ql (Stl) 14.4 g/dL 11.7 - 16.0 g/dL [employer] Work Phone: [phone] Interpretation and review of laboratory results Abnormal [employer] Work Phone: MCH (RBC) [Entitic mass] 30.6 pg 26. 0 - 34.0 pg [facility] Work Phone: MCHC (RBC) [Mass/Vol] 33.9 % 32.0 - 36.0 % [facility] Work Phone: MCV (RBC) [Entitic vol] 90.2 fL 79.0 - 98.0 fL [employer] Work Phone: Platelet distribution width (Bld) [Ratio] 13.4 % 11.5 - 14.5 % [facility] Work Phone: Platelet mean volume (Bld) [Entitic vol] 7.2 fL Low 7.4 - 10.4 fL [employer] Work Phone: Platelets (Bld) [#/Vol] 112 10*3/uL Low 140 - 440 10*3/uL [facility] Work Phone: RBC (Bld) [#/Vol] 4.70 10*6/uL 3.80 - 5.2 0 10*6/uL [facility] Work Phone: WBC (Bld) [#/Vol] 3.8 10*3/uL 3.6 - 10.7 10*3/uL [employer] Work Phone: [phone] Performed by [facility], [address] [place], [place] [address] Work Phone: [phone] [employer] Work Phone: [phone] Chest PA/LATon 10-15-2020 CR Chest PA/LAT Patient Name: ENRIQUE RESTREPO Diagnostic Radiology ACCESSION EXAM DATE/TIME PROCEDURE ORDERING PROVIDER [id number] 10/15/2020 08:56 EDT CR Chest PA and LAT [id number] SAPNA BOYKIN CPT code 72052 Reason For Exam (CR Chest PA and LAT) See dx Report CHEST (Frontal and lateral) History: COVID positive, cough, fatigue, fever Comparison: None available Findings: Frontal and lateral chest views show mild pulmonary hyperaeration. There is crowded lung markings in the bases and interstitial prominence of both lungs without acute infiltrate or congestion. The heart is normal in size. There is no mediastinal widening or pleural effusion. There is mild spondylosis. IMPRESSION: No appreciable acute pulmonary process. In view of the clinical history, consider follow-up exam to reassess. Report Dictated on Final Dictating Physician: MD MORA AHMAD Signed Date and Time: 10/15/2020 1:37 pm Signed by: MD MORA AHMAD Transcribed Date and Time: 10/15/2020 1:38 Normal [facility] Comp Metabolic Panelon 10-15 ALP [Catalytic activity/Vol] 69 U/L Normal 38-126 [facility] Comment on above: Performed By: #### H PUMA HIGHTOWER3 #### [facility] [address] [place] [address] ALT [Catalytic activity/Vol] 44 U/L High 0-34 [facility] Comment on above: Result Comment: The ALT test is performed by an updated assay method. Please note that the reference intervals have been changed and are now sex specific. Performed By: #### H PUMA HIGHTOWER3 #### [facility] [address] [place] [address] Anion gap [Moles/Vol] 8 mmol/L Normal 3-13 [facility] Comment on above: Performed By: #### H PUMA HIGHTOWER3 #### [facility] [address] [place] [address] AST [Catalytic activity/Vol] 43 U/L Normal 15-46 [facility] Comment on above: Performed By: #### H PUMA HIGHTOWER3 #### [facility] [address] [place] [address] Bilirubin [Mass/Vol] 0.3 mg/dL Normal 0.2-1.3 [facility] Comment on above: Performed By: #### H EMOG, CMP3 #### [facility] [address] [place] [address] Calcium [Mass/Vol] 8.9 mg/dL Normal 8.4-10.4 [facility] Comment on above: Performed By: #### Julito HIGHTOWER CMP3 #### [facility] [address] [place] [address] CO2 [Moles/Vol] 25 mmol/L Normal 22-30 [facility] Comment on above: Performed By: #### Julito HIGHTOWER CMP3 #### [facility] [address] [place] [address] Glucose [Mass/Vol] 102 mg/dL High 70-100 [facility] Comment on above: Performed By: #### Julito HIGHTOWER CMP3 #### [facility] [address] [place] [address] Protein [Mass/Vol] 7.5 g/dL Normal 6.3-8.2 [facility] Comment on above: Performed By: #### Julito HIGHTOWER CMP3 #### [facility] [address] [place] [address] Urea nitrogen [Mass/Vol] 13 mg/dL Normal 7-20 [facility] Comment on above: Performed By: #### Julito HIGHTOWER CMP3 #### [facility] [address] [place] [address] Creatinine [Mass/Vol] 0.82 mg/dL Normal 0.52-1.25 [facility] Comment on above: Performed By: #### Julito HIGHTOWER CMP3 #### [facility] [address] [place] [address] GFR/1.73 sq M.predicted among blacks MDRD (S/P/Bld) [Vol rate/Area] mL/min/{1.73_m2} Normal >60 [facility] Comment on above: Performed By: #### H CAMPBELL CMP3 #### [facility] [address] [place] [address] GFR/1.73 sq M.predicted among non-blacks MDRD (S/P/Bld) [Vol rate/Area] 81.0 mL/min/{1.73_m2} Normal >60 [facility] Comment on above: Result Comment: KDIG O guidelines provide the following GFR categories: Stage GFR(ml/min/1.73 m2) Terms G1 >=90 Normal or high G2 60-89 Mildly decreased* G3a 45-59 Mildly to moderately decreased G3b 30-44 Moderately to severely decreased G4 15-29 Severely decreased G5 <15 Kidney failure *Relative to young adult level. In the absence of evidence of kidney damage, neither GFR category G1 nor G2 fulfill the criteria for CKD. The CKD-EPI equation is validated in individuals 18 years of age and older. Currently the best equation for estimating glomerular filtration rate (GFR) from serum creatinine in children is the Bedside Brandt equation. It is less accurate in patients with extremes of muscle mass, restriction of dietary protein, ingestion of creatine, extra-renal metabolism of creatinine, or treatment with medications that affect renal tubular creatinine secretion. Performed By: #### H CAMPBELL CMP3 #### [facility] [address] [place] [address] Albumin [Mass/Vol] 4.3 g/dL Normal 3.5-5.0 [facility] Comment on above: Performed By: #### H PUMA HIGHTOWER3 #### [facility] [address] [facility] [place] [address] Chloride [Moles/Vol] 103 mmol/L Normal 98-107 [facility] Comment on above: Performed By: #### H CAMPBELL CMP3 #### [facility] [address] [place] [address] Potassium [Moles/Vol] 3.9 mmol/L Normal 3.5-5.1 [facility] Comment on above: Performed By: #### H PUMA HIGHTOWER3 #### [facility] [address] [facility] [place] [address] Sodium [Moles/Vol] 136 mmol/L Normal 135-145 [facility] Comment on above: Performed By: #### H CAMPBELL CMP3 #### [facility] [address] [place] [address] Comprehensive Metabolic Pane lOrdered By: Sapna Argueta on 10-15-2020 Albumin [Mass/Vol] 4.3 g/dL 3.5 - 5.0 g/dL [employer] Work Phone: [phone] ALP (Bld) [Catalytic activity/Vol] 69 U/L 38 - 126 U/L [employer] Work Phone: [phone] ALT [Catalytic activity/Vol] 44 U/L High 0 - 34 U/L [employer] Work Phone: [phone] Comment on above: The ALT test is perf ormed by an updated assay method. Please note that the reference intervals have been changed and are now sex specific. Anion gap [Moles/Vol] 8 mmol/L 3 - 13 mmol/L [employer] Work Phone: [phone] AST [Catalytic activity/Vol] 43 U/L 15 - 46 U/L [employer] Work Phone: [phone] Bilirubin [Mass/Vol] 0.3 mg/dL 0.2 - 1 .3 mg/dL [employer] Work Phone: [phone] Calcium [Mass/Vol] 8.9 mg/dL 8.4 - 10. 4 mg/dL [employer] Work Phone: [phone] Chloride [Moles/Vol] 103 mmol/L 98 - 10 7 mmol/L [employer] Work Phone: [phone] CO2 [Moles/Vol] 25 mmol/L 22 - 30 mmol/L [employer] Work Phone: [phone] Creatinine [Mass/Vol] 0.82 mg/dL 0.52 - 1.25 mg/dL [employer] Work Phone: [phone] EGFR IF NonAfrican [place] 81.0 mL/min >60 [employer] Work Phone: Comment on above: KDIGO guidelines pro vide the following GFR categories: Stage GFR(ml/min/1.73 m2) Terms G1 >=90 Normal or high G2 60-89 Mildly decreased* G3a 45-59 Mildly to moderately decreased G3b 30-44 Moderately to severely decreased G4 15-29 Severely decreased G5 <15 Kidney failure *Relative to young adult level. In the absence of evidence of kidney damage, neither GFR category G1 nor G2 fulfill the criteria for CKD. The CKD-EPI equation is validated in individuals 18 years of age and older. Currently the best equation for estimating glomerular filtration rate (GFR) from serum creatinine in children is the Bedside Brandt equation. It is less accurate in patients with extremes of muscle mass, restriction of dietary protein, ingestion of creatine, extra-renal metabolism of creatinine, or treatment with medications that affect renal tubular creatinine secretion. Free PSA/Total PSA [Mass fraction] 7.5 g/dL 6.3 - 8.2 g/dL [facility] Work Phone: [phone] GFR/1.73 sq M.predicted among blacks MDRD (S/P/Bld) [Vol rate/Area] mL/min/{1.73_m2} >60 mL/min [facility] Work Phone: [phone] Glucose [Mass/Vol] 102 mg/dL High 70 - 100 mg/dL [facility] Work Phone: [phone] Interpretation and review of laboratory results Abnormal [facility] Work Phone: [phone] Potassium [Moles/Vol] 3.9 mmol/L 3.5 - 5.1 mmol/L [facility] Work Phone: [phone] Sodium [Moles/Vol] 136 mmol/L 135 - 145 mmol/L [facility] Work Phone: [phone] Urea nitrogen (BldV) [Mass/Vol] 13 mg/dL 7 - 20 mg/dL [facility] Work Phone: [phone] Test Performed by [facility], [address] [place] [id number] Work Phone: [phone] [facility] Work Phone: [phone] Hemogramon 10-15-2020 Erythrocyte distribution width (RBC) [Ratio] 13.4 % Normal 11.5-14.5 [facility] Comment on above: Performed By: #### H PUMA HIGHTOWER3 #### [facility] [address] [place] [address] Hematocrit (Bld) [Volume fraction] 42.4 % Normal 35.0-47.0 [facility] Comment on above: Performed By: #### H PUMA HIGHTOWER3 #### [facility] [address] [place] [address] Hemoglobin (Bld) [Mass/Vol] 14.4 g/dL Normal 11.7-16.0 [facility] Comment on above: Performed By: #### Julito HIGHTOWER CMP3 #### [facility] [address] [place] [address] MCH (RBC) [Entitic mass] 30.6 pg Normal 26.0-34.0 [facility] Comment on above: Performed By: #### Julito HIGHTOWER CMP3 #### [facility] [address] [place] [address] MCHC 33.9 % Normal 32.0-36.0 [facility] Comment on above: Performed By: #### Julito HIGHTOWER CMP3 #### [facility] [address] [place] [address] MCV (RBC) [Entitic vol] 90.2 fL Normal 79.0-98.0 [facility] Comment on above: Performed By: #### Julito HIGHTOWER CMP3 #### [facility] [address] [place] [address] Platelet mean volume (Bld) [Entitic vol] 7.2 fL Low 7.4-10.4 [facility] Comment on above: Performed By: #### Julito HIGHTOWER CMP3 #### [facility] [address] [place] [address] Platelets (Bld) [#/Vol] 112 10*3/uL Low 140-440 [facility] Comment on above: Performed By: #### Julito HIGHTOWER CMP3 #### [facility] [address] [place] [address] RBC (Bld) [#/Vol] 4.70 10*6/uL Normal 3.80-5.20 [facility] Comment on above: Performed By: #### Julito HIGHTOWER CMP3 #### [facility] [address] [place] [address] WBC (Bld) [#/Vol] 3.8 10*3/uL Normal 3.6-10.7 [facility] Comment on above: Performed By: #### Julito HIGHTOWER CMP3 #### [facility] [address] [facility] [place] [address] XR CHEST (2 VW)Ordered By: Ross Argueta on 10-15-2020 Patient Name: ENRIQUE RESTREPO Diagnostic Radiology ACCESSION EXAM DATE/TIME PROCEDURE ORDERING PROVIDER [id number] 10/15/2020 08:56 EDT CR Chest PA & LAT [id number] JARRED BOYKINA CPT code 76553 Reason For Exam (CR Chest PA & LAT) See dx Report CHEST (Frontal and lateral) History: COVID positive, cough, fatigue, fever Comparison: None available Findings: Frontal and lateral chest views show mild pulmonary hyperaeration. There is crowded lung markings in the bases and interstitial prominence of both lungs without acute infiltrate or congestion. The heart is normal in size. There is no mediastinal widening or pleural effusion. There is mild spondylosis. IMPRESSION: No appreciable acute pulmonary process. In view of the clinical history, consider follow-up exam to reassess. Report Dictated on --- Final --- Dictating Physician: MD MORA AHMAD Signed Date and Time: 10/15/2020 1:37 pm Signed by: MD MORA AHMAD Transcribed Date and Time: 10/15/2020 1:38 [facility] Work Phone: [facility] Incoming Radiology Results From [facility] - 10/15/2020 1:38 PM EDT Patient Name: ENRIQUE RESTREPO Diagnostic Radiology ACCESSION EXAM DATE/TIME PROCEDURE ORDERING PROVIDER [id number] 10/15/2020 08:56 EDT CR Chest PA & LAT [id number] RadhamesELVISJARRED DEYA CPT code 54837 Reason For Exam (CR Chest PA & LAT) See dx Report CHEST (Frontal and lateral) History: COVID positive, cough, fatigue, fever Comparison: None available Findings: Frontal and lateral chest views show mild pulmonary hyperaeration. There is crowded lung markings in the bases and interstitial prominence of both lungs without acute infiltrate or congestion. The heart is normal in size. There is no mediastinal widening or pleural effusion. There is mild spondylosis. IMPRESSION: No appreciable acute pulmonary process. In view of the clinical history, consider follow-up exam to reassess. Report Dictated on --- Final --- Dictating Physician: MD MORA AHMAD Signed Date and Time: 10/15/2020 1:37 pm Signed by: MD MORA AHMAD Transcribed Date and Time: 10/15/2020 1:38 [facility] Work Phone: [facility] Work Phone: Surgical Pathologyon 018 Surgical Pathology [id number] [facility] PATHOLOG[facility]ORATORY MEDICINE [address] [place] [address] FINAL SURGICAL PATHOLOGY REPORT NAME: ENRIQUE RESTREPO .O.B.: 1965 52 Y F BILLING NO.: [id number] PROCEDURE 02/14/2018 DATE:SURGEON: DEGAR RODRIGUEZ MD RECEIVED 02/14/2018 DATE:ATTENDING: EDGAR RODRIGUEZ MD REPORT DATE: 02/15/2018 COPIES TO: DIAGNOSIS:COLON, TRANSVERSE, POLYP - HYPERPLASTIC POLYPRPV/SHERI DON ALMAZAN M.D. CLINICAL INFORMATION: Anemia, GERDSPECIMEN: COLON POLYP, BIOPSY GROSS DESCRIPTION:"Transverse colon polyp"Received in formalin is an irregular segment of membranous holland tissue 1x 0.3 cm. The specimen is entirely submitted in a single cassette. (1ns, 1) JCK/Fayeclaimer: The following statement applies to allimmunohistochemistry , in situ hybridization, molecular studies, andimmunofluorescence testing.The use of one or more reagents in the above tests is regulated as ananalyte specific reagent (ASR). These tests were developed and theirperformance characteristics determined by the clinical laboratories [facility]. They have not been cleared by the US Food and DrugAdministration (FDA). The FDA has determined that such clearance orapproval is not necessary.All the above immunostains were performed on paraffin embedded tissue.Appropriate positive and negative controls (where applicable) were runin parallel with the patient's specimen; these controls showed expectedstaining pattern, with acceptable intensity of staining.Immunohistoche mical assays have not been validated on decalcifiedtissues. Results should be interpreted with caution given the raisedpossibility of false negativity on decalcified specimens.Professional Performing Location: [address] [address]. DEPARTMENT OF PATHOLOGY AND LABORATORY MEDICINE [place], [place] [address] Normal [facility] Vital Signs Date Time Vital Sign Value Performing Clinician Sky mac 02-16-2025 08:40-0400 Body height 160.[address] Taz Blue MD Work Phone: [facility] 02-16-2025 08:40-0400 Body mass index (BMI) [Ratio] 28.1 kg/m2 Dr. Taz Blue MD Work Phone: [facility] 02-16-2025 08:40-0400 Body temperature 97.2 [degF] Dr. Taz Blue MD Work Phone: [facility] 02-16-2025 08:40-0400 Body weight 72.[address] Taz Blue MD Work Phone: [facility] 02-16-2025 08:40-0400 Diastolic blood pressure 72 mm[Hg] Dr. Taz Blue MD Work Phone: [facility] 02-16-2025 08:40-0400 Heart rate 79 /min Dr. Taz Blue MD Work Phone: [facility] 02-16-2025 08:40-0400 Respiratory rate 14 /min Dr. Taz Blue MD Work Phone: [facility] [facility] 02-16-2025 08:40-0400 SaO2% (BldA) [Mass fraction] 97 % Dr. Taz Blue MD Work Phone: [facility] 02-16-2025 08:40-0400 Systolic blood pressure 108 mm[Hg] Dr. Taz Blue MD Work Phone: [facility] 01-13-2025 07:30-0400 Body temperature 98.8 [degF] Dr. Taz Blue MD Work Phone: [facility] 01-13-2025 07:30-0400 Diastolic blood pressure 80 mm[Hg] Dr. Taz Blue MD Work Phone: [facility] 01-13-2025 07:30-0400 Heart rate 88 /min Dr. Taz Blue MD Work Phone: [facility] 01-13-2025 07:30-0400 Respiratory rate 16 /min Dr. Taz Blue MD Work Phone: [facility] 01-13-2025 07:30-0400 SaO2% (BldA) [Mass fraction] 98 % Dr. Taz Blue MD Work Phone: [facility] 01-13-2025 07:30-0400 Systolic blood pressure 122 mm[Hg] Dr. Taz Blue MD Work Phone: [facility] 01-02-2025 08:06-0400 Body height 161.[address] Taz Blue MD Work Phone: [facility] 01-02-2025 08:06-0400 Body mass index (BMI) [Ratio] 27.9 kg/m2 Dr. Taz Blue MD Work Phone: [facility] 01-02-2025 08:06-0400 Body weight 72.[address] Taz Blue MD Work Phone: [facility] 10-16-2024 14:43-0400 Body height 161.[address] Taz Blue MD Work Phone: [facility] 10-16-2024 14:43-0400 Body mass index (BMI) [Ratio] 29.2 kg/m2 Dr. Taz Blue MD Work Phone: [facility] 10-16-2024 14:43-0400 Body weight 75.[address] Taz Blue MD Work Phone: [facility] 10-16-2024 14:43-0400 Diastolic blood pressure 79 mm[Hg] Dr. Taz Blue MD Work Phone: [facility] 10-16-2024 14:43-0400 Systolic blood pressure 130 mm[Hg] Dr. Taz Blue MD Work Phone: [facility] 09-23-2024 08:35-0400 Body height 161.[address] Taz Blue MD Work Phone: [facility] 09-23-2024 08:28-0400 Body mass index (BMI) [Ratio] 29 kg/m2 Dr. Taz Blue MD Work Phone: [facility] 09-23-2024 08:28-0400 Body weight 75.[address] Taz Blue MD Work Phone: [facility] 09-23-2024 08:28-0400 Diastolic blood pressure 96 mm[Hg] Dr. Taz Blue MD Work Phone: [facility] 09-23-2024 08:28-0400 Systolic blood pressure 143 mm[Hg] Dr. Taz Blue MD Work Phone: [facility] 09-01-2024 09:55-0400 Body mass index (BMI) [Ratio] 27.8 kg/m2 Dr. Taz Blue MD Work Phone: [facility] 09-01-2024 09:55-0400 Body temperature 99 [degF] Dr. Taz Blue MD Work Phone: [facility] 09-01-2024 09:55-0400 Body weight 72.[address] Taz Blue MD Work Phone: [facility] 09-01-2024 09:55-0400 Diastolic blood pressure 54 mm[Hg] Dr. Taz Blue MD Work Phone: [facility] 09-01-2024 09:55-0400 Heart rate 95 /min Dr. Taz Blue MD Work Phone: [facility] 09-01-2024 09:55-0400 Respiratory rate 16 /min Dr. Taz Blue MD Work Phone: [facility] 09-01-2024 09:55-0400 SaO2% (BldA) [Mass fraction] 94 % Dr. Taz Blue MD Work Phone: [facility] 09-01-2024 09:55-0400 Systolic blood pressure 92 mm[Hg] Dr. Taz Blue MD Work Phone: [facility] 10-12-2022 13:37-0400 Body temperature 98.8 [degF] [facility] SITE FOREMAN.PLANNING SPECIALIST Work Phone: [facility] 10-12-2022 13:37-0400 Body [facility].PLANNING SPECIALIST Work Phone: [facility] 10-12-2022 13:37-0400 Diastolic blood pressure 80 mm[Hg] [facility] SITE FOREMAN.PLANNING SPECIALIST Work Phone: [facility] 10-12-2022 13:37-0400 Heart rate 92 /min [facility] SITE FOREMAN.PLANNING SPECIALIST Work Phone: [facility] 10-12-2022 13:37-0400 Respiratory rate 18 /min [facility] SITE FOREMAN.PLANNING SPECIALIST Work Phone: [facility] 10-12-2022 13:37-0400 SaO2% (BldA) [Mass fraction] 97 % [facility] SITE FOREMAN.PLANNING SPECIALIST Work Phone: [facility] 10-12-2022 13:37-0400 Systolic blood pressure 128 mm[Hg] [facility] SITE FOREMAN.PLANNING SPECIALIST Work Phone: [facility] Encounters Encounter Date Encounter Type Care Provider Facility Start: 03-24-2025 ambulatory Taz Inman ty:[facility] Start: 02-27-2025 End: 02-27-2025 Patient encounter procedure Carmen Perez [employer] -[facility]patient [facility] Work Phone: Start: 02-27-2025 End: 02-27-2025 ambulatory Carmen Perez Facility:[facility] Start: 02-24-2025 End: 02-24-2025 Patient encounter procedure Carmen Perez [employer]OMER [employer]C -Outpatient Breast Imaging Work Phone: Start: 02-24-2025 End: 02-24-2025 ambulatory Taz Blue Facility:[facility] Start: 02-16-2025 End: 02-16-[address] Taz Blue MD -[facility] Start: 02-16-2025 End: 02-16-[address] Taz Blue MD Work Phone: -[facility]atory [place] Start: 02-16-2025 Registered Referred HEALTH RIS K ASSESSMENT -Employee Health Start: 02-16-2025 End: 02-16-[address] Taz Blue MD -[facility] Work Phone: Start: 02-16-2025 End: 02-16-[address] Taz Blue MD [facility] Start: 02-16-2025 End: 02-16-[address] Taz Blue MD Work Phone: -[facility] Start: 01-13-2025 End: 01-13-2025 Patient encounter procedure Carmelo Kennkhadar [employer] [facility] Work Phone: Start: 01-13-2025 End: 01-13-[address] Taz Blue MD Work Phone: [facility] Start: 01-13-2025 End: 01-13-2025 ambulatory Taz Blue Facility:[facility] Start: 01-02-2025 End: 01-02-2025 Patient encounter procedure Sara MARROQUIN -[facility] Work Phone: Start: 01-02-2025 End: 01-02-[address] Taz Blue MD Work Phone: -[facility] Start: 12-30-2024 End: 12-30-[address] Taz Blue MD Work Phone: -Radiology [facility] Start: 12-30-2024 End: 12-30-2024 Patient encounter procedure Sara MARROQUIN -Radiology [facility] Work Phone: Start: 12-30-2024 End: 12-30-2024 ambulatory Sara Marcial Facility:[facility] Start: 10-16-2024 End: 10-16-[address] Taz Blue MD Work Phone: [facility] Work Phone: Start: 10-16-2024 End: 10-16-2024 Patient encounter procedure Carmen CONNELLY -[facility] Work Phone: Start: 10-16-2024 Encounter for gynecological examination (general) (routine) without abnormal findings [facility] Start: 10-16-2024 End: 10-16-2024 Patient encounter procedure Carmen CONNELLY -[facility] Work Phone: Start: 10-16-2024 End: 10-16-2024 Patient encounter status Carmen CONNELLY [facility] Start: 10-16-2024 End: 10-16-[address] Taz Blue MD Work Phone: [facility] Work Phone: Start: 10-16-2024 End: 10-16-2024 ambulatory Carmen Perez Facility:[facility] Start: 09-23-2024 End: 09-23-2024 Patient encounter procedure Porshavance Cannon [facility] Work Phone: Start: 09-23-2024 End: 09-23-[address] Taz Blue MD Work Phone: [facility] Work Phone: Start: 09-01-2024 End: 09-01-2024 Patient encounter procedure Rudy MARROQUIN -[facility] Work Phone: Start: 09-01-2024 End: 09-01-2024 ambulatory Taz Blue Facility[facility] Start: 09-01-2024 End: 09-01-2024 Patient encounter procedure Rudy MARROQUIN -[facility] Work Phone: Start: 09-01-2024 End: 09-01-2024 ambulatory Taz Blue Facility:[facility] Start: 05-01-2024 End: 05-01-2024 ambulatory Evan MARROQUIN Facility:[facility] Start: 09-28-[address] Adeola Blue MD Work Phone: [facility] Start: 10-12-2022 End: 10-12-2022 ambulatory Facility:[facility] Start: 10-12-2022 End: 10-12-2022 Office outpatient visit 15 minutes Jack Ortiz APRN.CNP Work Phone: [facility] Comment on above: Insect bite of right lower extremity, initial encounter (Primary Dx) Start: 10-15-2020 End: 10-15-2020 Subsequent hospital visit by physician Sapna Argueta APRN - [employer] Work Phone: [facility] Comment on above: COVID-19 Start: 02-14-2018 Patient encounter [facility] Procedures Date Procedure Procedure Detail Performing Clinician Start: 02-27-[address] Taz Blue MD Work Phone: Start: 02-27-[address] Lucy Blue MD Work Phone: Start: 02-24-2025 Screening mammography Milena Blue MD Work Phone: Start: 02-16-2025 Serum inorganic phos phate measurement Dr. Taz Blue MD Work Phone: Start: 01-13-[address] Tamir Blue MD Work Phone: Start: 12-30-2024 X-ray of lumbosacral spine Dr. Taz Blue MD Work Phone: Start: 10-16-2024 Liquid based cervica l cytology screening Dr. Taz Blue MD Work Phone: Comment on above: NEGATIVE FOR INTRAEP ITHELIAL LESION OR MALIGNANCY.CELLULAR CHANGES ASSOCIATED WITH ATROPHY ARE PRESENT. This liquid based Th inPrep(R) pap test was screened withthe use of an image guided system. 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 SPECIALIST Work Phone: Plan of Treatment Date Care Activity Detail Author Start: 02-15-2028 Screening for malignant neoplasm of colon Colon cancer screen colonoscopy [facility] Work Phone: Start: 02-16-2025 CT angiography of coronary arteries [facility] Start: 02-16-2025 Lipoprotein a [Mass/volume] in Serum or Plasma [facility] Start: 10-16-2024 Liquid based cervical cytology screening [facility] Start: 01-12-2023 Influenza [facility] Start: 08-02-2022 Screening for malignant neoplasm of breast Breast cancer screen [facility] Work Phone: Start: 06-24-2022 Screening for malignant neoplasm of cervix Cervical cancer screen [facility] Work Phone: Start: 05-14-2022 DEPRESSION ASSESSMENT DEPRESSION ASSESSMENT [facility] Start: 02-01-2022 Lipid panel Lipid screen [facility] Work Phone: Start: 11-21-2021 DTaP/Tdap/Td vaccine (2 - Tdap) DTaP/Tdap/Td vaccine (2 - Tdap) [facility] Work Phone: Start: 01-12-2021 Influenza vaccination Flu vaccine (Season Ended) [facility] Work Phone: Start: 10-26-2020 End: 10-26-2020 Nursing evaluation of patient and report 10/26/2020 Nurse Only Family Medicine [facility] Start: 10-21-2020 End: 06-10-2021 Nursing evaluation of patient and report 10/21/2020 Nurse Only Family Medicine [facility] Start: 2016 Shingles Vaccine (1 of 2) Shingles Vaccine (1 of 2) [facility] Work Phone: Start: 2016 SHINGRIX VACCINE (1 of 2) SHINGRIX VACCINE (1 of 2) [facility] Start: 07-18-2011 COLOGUARD (FIT-DNA) COLOGUARD (FIT-DNA) [facility] Start: 07-18-2011 Colonoscopy COLONOSCOPY [facility] Start: 07-18-2011 COLORECTAL CANCER SCREENING COLORECTAL CANCER SCREENING [facility] Start: 07-18-[address] COLONOGRAPHY [facility] Start: 07-18-2011 DIABETES SCREEN DIABETES SCREEN [facility] Start: 07-18-2011 FECAL OCCULT BLOOD FECAL OCCULT BLOOD [facility] Start: 07-18-2011 LIPID SCREEN LIPID SCREEN [facility] Start: 07-18-2011 SIGMOIDOSCOPY SIGMOIDOSCOPY [facility] Start: 05-29-2009 Mammography MAMMOGRAM [facility] Start: 1996 HPV TESTING HPV TESTING [facility] Start: 07-18-1987 PAP TESTING PAP TESTING [facility] Start: 1985 Urine microalbumin profile DTAP,TDAP,TD (1 - Tdap) [facility] Start: 1984 HEPATITIS C SCREENING HEPATITIS C SCREENING [facility] Start: 1984 HIV SCREENING HIV SCREENING [facility] Start: 1981 HIV screening HIV screen [facility] Work Phone: Start: 1978 COVID-19 Vaccine (1) COVID-19 Vaccine (1) [facility] Work Phone: Start: 01-17-1967 COVID-19 VACCINE (#1) COVID-19 VACCINE (#1) [facility] Start: 1966 HEPATITIS B (1 of 3 - 3-dose series) HEPATITIS B (1 of 3 - 3-dose series) [facility] Start: 1966 Hepatitis C screening Hepatitis C screen [facility] Work Phone: Cytology report of Cervical or vaginal smear or scraping Cyto stain.thin prep [facility] Liquid based cervica l cytology screening [facility] MG Breast - bilatera l Screening [facility] Path report.final Dx Spec [facility] Immunizations Immunization Date Immunization Notes Care Provider Fa jacquiekiley 02-16-2025 influenza, injectabl e, madin sahra canine kidney, preservative free Dr. Taz Blue MD Work Phone: [facility] 02-16-[address] Taz Blue MD Work Phone: [facility] 03-20-2024 influenza, seasonal, injectable, preservative free Dr. Taz Blue MD Work Phone: [facility] 10-25-2012 hepatitis B vaccine, pediatric or pediatric/adolescent dosage Dr. Taz Blue MD Work Phone: [facility] 10-25-2012 hepatitis B vaccine, unspecified formulation Sapna Tokie SITE FOREMAN - [employer] Work Phone: [facility] Work Phone: 09-23-2012 hepatitis A vaccine, unspecified formulation Sapna Tokie SITE FOREMAN - [employer]ER [employer] Work Phone: [facility] Work Phone: 09-23-2012 hepatitis B vaccine, pediatric or pediatric/adolescent dosage Dr. Taz Blue MD Work Phone: [facility] 09-23-2012 hepatitis B vaccine, unspecified formulation Sapna Tokie SITE FOREMAN - CUST[employer]ER [employer] Work Phone: [facility] Work Phone: 11-22-2011 diphtheria, tetanus toxoids and acellular pertussis vaccine Sapna Tokie SITE FOREMAN - [employer]ER [employer] Work Phone: [facility] Payers Date Payer Category Payer Self-pay 2024 Unknown [id number] 2022 Unknown 2022 Unknown [id number] 2018 Unknown [id number] 1. [id number] 2014 Unknown [id number] 1. [id number] 1966 Unknown [id number] 2.16.8 [id number] Unknown [id number] 2.16.8 [id number] Unknown [id number] 2.16.8 [id number] Unknown [id number] 2.16.8 [id number] Unknown [id number] 2.16.8 [id number] Unknown [id number] 2.16.8 [id number] Unknown [id number] 2.16.8 [id number] Unknown [id number] 2.16.8 [id number] Unknown [id number] 2.16.8 [id number] Unknown [id number] 2.16.8 [id number] Unknown [id number] 2.16.8 [id number] Unknown [id number] 2.16.8 [id number] Unknown [id number] 2.16.8 [id number] Unknown [id number] 2.16.8 [id number] Unknown [id number] 2.16.8 [id number] Unknown [id number] 2.16.8 [id number] Unknown [id number] 2.16.8 [id number] Social History Date Type Detail Facility Start: 10-14-2020 End: 02-16-2025 Tobacco smoking status NHIS Never smoker [facility] Start: 10-14-2020 End: 10-12-2022 Tobacco use and exposure Never used [facility] Start: 10-14-2020 Alcohol intake 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 Self- Management Goals: Below is a list of objectives your doctor would like you to consider working on help improve your overall health. Which objectives would you like to work on: Objective: overall health Barriers to success: time Plan for overcoming my barriers: implement diet plan Confidence: moderate in terms of implementation, 5 on scale of 1-10 Date goal set: today Patient given educational materials below via AVS. Patient received counseling about current lifestyle goal. Patient was informed that they should never smoke. If they are smoker, the need to work on quitting. Advised Alcohol only in moderation. Advised approximately 150 minutes of cardio, i.e treadmill, exercise in a week. Advised "strive for 5" a total 5 servings of fruits and vegetables in a day. Advised a diet lower in carbohydrates and simple sugars. They need to watch consumption of bread, rice, pasta, potatoes, corn, soda, sweetened tea, lemonade, and all other sugar drinks. Patient given after visit summary which includes this educational information Discussed use, benefit, and side effects of prescribed medications and barriers to medication compliance addressed, if applicable. All patient questions answered. Patient was given a copy of this, and was advised to call if any questions. Clinical Notes 10-12-2022 to 02-16-2025 Note Date & Type Note Facility 02-16-2025 Progress note [facility] 01-02-2025 Evaluation note Diagnosis Onset Date Resolution Herniated nucleus pulposus, L5-S1, right acute January 022024 7:55am Lumbar radiculopathy acute Augu 2024 7:55am Acute UTI acute January 13, 2025 7:29am Family history of early CAD acute February 16 8:18am Preventative health care acute February 16, 2025 8:18am [facility] Work Phone: 1(282) 323-112408-21-2025 Radiology Diagnostic study note [facility] Services [address] [place], [place] [address] L/S Spine Bending Flex/Ext MR#: [id number] Acct: [id number] Name: ENRIQUE RESTREPO Rep #: [id number] : 1965 F 59 From: Supriya Schwartz MD PCP: Dr. Taz Blue MD Status: R EG CLI Study:L/S Spine Bending Flex/Ext Date of Exam : 12/30/24 Exam# [id number] Ordering Dr: Dany Marcial PROCEDURE: L/S SPINE BENDING FLEX/EXT 12/30/2024 REASON FOR EXAM: BACK PAIN TECHNIQUE: L/S SPINE BENDING FLEX/EXT COMPARISON: None FINDINGS: Vertebral body height and alignment are maintained. There is no spondylolisthesis or instability demonstrated on the flexion or extension views. There is loss of disc height throughout the lumbar region. There is moderate facetsclerosis. Mineralization is normal. There is no visible atherosclerosis. RAD/L/S Spine Bending Flex/Ext IMPRESSION: There is degenerative disc disease throughout the lumbar region. There is no instability demonstrated. Reading Location: [id number] CC: CARA Prasad; Dr. 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: No Is patient in pain?: No Allergies No Known Allergies Allergy (Verified 10/16/24 14:45) Medications ?Medication ?Instructions ?Recorded ?Confirmed ?Type ascorbate calcium (vitamin C) 500 500 mg PO DAILY 06/1410/16/24 History mg tablet lactobacillus combination no.8 3 3,000 mmu cells PO DA MANUEL 06/24/19 10/16/24 History billion cell capsule (Adult Probiotic) multivitamin,[id number] 1 tab PO DAILY 06/24/19 10/16/24 History (Complete Multivitamin tablet) cholecalciferol (vitamin D3) 10 10 mcg PO DAILY 10/16/24 History mcg (400 unit) capsule coenzyme Q10 75 mg capsule (Ultra 75 mg PO DAILY 09/2710/16/24 History CoQ10) lysine 1,000 mg tablet 600 mg PO DAILY 09/28/2310/05 History magnesium citrate 100 mg tablet 400 mg PO DAILY 10/16/24 History magnesium glycinate 100 mg (as 200 mg PO DAILY 4 10/16/24 History glycinate) tablet magnesium oxide 250 mg PO DAILY 09/28/2310/05 History benzonatate 200 mg capsule 200 mg PO TID PRN cough #20 caps 09/01/24 10/16/24 Rx methylprednisolone 4 mg tablets in See Rx Instructions PO PER PKG DIR 09/01/24 10/16/24 Rx a dose pack (Medrol (Joseph)) #21 tabs Is last menstrual period known: No Post menopausal: Yes Patient : No : No PFSH Surgical History S/P tendon repair Normal colonoscopy Family History Father , of [place] at 63 Myocardial infarction, Onset Age: 63 2002 Grandmother Diabetes Aunt Myocardial infarction Uncle Myocardial infarction Grandfather Arthritis Social History household members: spouse and children housing: house current occupational status: employed current occupation: [employer] Smoking Status: Never smoker alcohol intake: never substance use type: does not use caffeine: Yes what type of physical activity do you participate in: other details: crossfit frequency: 3-4 times per week seatbelt use: always do you feel safe at home: Yes additional social history: Crow History 3 Elective abortions Hx Para 3 Spontaneous abortions Hx # Term Pregnancies Ectopic pregnancies Hx # Pregnancies Multiple births # of living children HPI Encounter for routine gynecological examination Details: ENRIQUE RESTREPO is a 59 year old who presents for annual exam. She reports no issues or concerns today. Doing well overall. Last PAP: 2019; normal. HPV neg. History of abnormal PAP: no. Last mammogram: 2023; normal. History of abnormal mammogram: dense tissue Colon cancer screenin yrs ago; Camila? Other preventative health care screenings: Dr. Blue; PCP. Female Reproductive History Questions: metorrhagia: No, sexually active: Yes (vasectomy), dyspareunia: No and PCB: No ROS Const Constitutional: Denies chills, fatigue, fever(s), headache(s) or weight loss Eyes Eyes: Denies change in vision ENT ENT: Denies dizziness Cardio Card: Denies chest pain at rest or palpitations Resp Resp: Denies cough GI GI: Denies abdominal pain, constipation or nausea : Reports vaginal dryness; Denies difficulty voiding, dysuria, hematuria, nipple discharge, pelvic pain, prolapse symptoms, urinary incontinence, vaginal discharge, vaginal odor or vaginal pruritus Skin Skin/Breast: Denies alopecia, rash, breast mass, breast pain, breast skin changes or nipple discharge Neuro Neuro: Denies dizziness Psych Psych: Denies anxiety or depression Endo Endo: Denies cold intolerance, excessive sweating or heat intolerance Exam Const General: cooperative, healthy appearing, comfortable, no acute distress, well groomed and well hydrated Nutritional Appearance: well nourished Orientation: alert, awake and oriented x3 HENMT Head: normal to inspection and normocephalic Ears: hearing grossly normal bilaterally and external ears normal Nose: external nose normal Face and sinus: normal facial exam Eyes General: appearance normal, both eyes and all related structures Neck Neck: normal visual inspection, full ROM and no lymphadenopathy Thyroid: thyroid normal Chest Chest palpation & inspection: normal inspection of the chest Breast inspection: normal inspection of the breasts and normal inspection of theaxillae Breast palpation: normal palpation of the breasts, normal palpation of the axillae and no axillary lymphadenopathy Resp Effort & Inspection: normal respiratory effort, able to speak in complete sentences and symmetric chest movement GI Inspection: normal to inspection Palpation: soft and no hepatosplenomegaly General: bladder normal to palpation External Female Exam: normal external appearance and normal appearance of the urethra Urethra: normal appearance of the urethra Speculum Exam - Vagina: normal appearance of the vagina, normal vaginal discharge, no lesions and nontender Speculum Exam - Cervix: normal appearance of the cervix, no lesions and no masses Bimanual Exam- Vagina & Uterus: normal bimanual exam, uterine size normal, bladder normal to palpation, normal palpation and non-tender Bimanual Exam- Adnexa, other: normal adnexae, no masses, normal and non-tender Pelvic Support: normal Skin General: no rashes or lesions noted Neuro General: patient alert, patient awake, patient oriented x3 and moves all extremities Psych Appearance: grossly normal Mental Status: mental status grossly normal Affect: normal affect Speech and Movement: speech and movement normal Attitude: cooperative Coding Level of Care Code Established Pt Off vis,est,prev 40-64yrs Patient Type Established Diagnoses Encounter for routine gynecological examination Z01.419 Assessment and Plan Assessment and Plan (1) Encounter for routine gynecological examination: Plan: Breast and pelvic exam complete. PAP due: completed today Mammogram due: orders placed to obtain Advised self breast exams monthly. Contraception: post menopausal Advised incorporating healthy dietary choices such as increase in lean meats, fruits/vegetables, less processed food/sat fat/trans fats. Increase exercise to 30 minutes per day/5 days a week. This can include both weight bearing exercisesand/or brisk walking. Follow up with PCP for further preventative health screenings. 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 Call office sooner with questions or concerns. Orders: Orders SCRN MAMM (CAD)W/JAMAL BILAT Today Z12.31 - Encounter for screening mammogram for malignant neoplasmof breast PAP IG HPV APTIMA 16/18,45 Today Z12.4 - Encounter for screening for malignant neoplasm of cervix 10/16/24 1513 n MARICEL> Date _ Carmen Deniseignmargarita Signature: Date (if applicable) CC: ~ [facility]06-05-2025 Progress note Author Carmen Perez [facility] Services Note Date/Time October 16, 2024 3:13p [facility] [address], [address] [place] [address] OFFICE VISIT Date of Service: 10/16/24 MR#: [id number] Acct: [id number] Name: ENRIQUE RESTREPO Rep #: [id number] : 1965 Provider: MARICEL Perez Age/Sex: 59/F [place] [facility] [place]: Signed Intake Vital Signs 09/01/24 09:55 09/23/24 08:35 10/16/24 14:43 Height 5 ft 3.5 in 5 ft 3.5 in 5 ft 3.5 in Weight: 167 lb 6 oz BMI 29.2 BP 130/79 H 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: No Is patient in pain?: No Allergies No Known Allergies Allergy (Verified 10/16/24 14:45) Medications ?Medication ?Instructions ?Recorded ?Confirmed ?Type ascorbate calcium (vitamin C) 500 500 mg PO DAILY 06/1410/16/24 History mg tablet lactobacillus combination no.8 3 3,000 mmu cells PO DA MANUEL 06/24/19 10/16/24 History billion cell capsule (Adult Probiotic) multivitamin,gf-sota-cpzccyga 1 tab PO DAILY 06/24/19 10/16/24 History (Complete Multivitamin tablet) cholecalciferol (vitamin D3) 10 10 mcg PO DAILY 10/16/24 History mcg (400 unit) capsule coenzyme Q10 75 mg capsule (Ultra 75 mg PO DAILY 09/2710/16/24 History CoQ10) lysine 1,000 mg tablet 600 mg PO DAILY 09/28/2310/05 History magnesium citrate 100 mg tablet 400 mg PO DAILY 10/16/24 History magnesium glycinate 100 mg (as 200 mg PO DAILY 4 10/16/24 History glycinate) tablet magnesium oxide 250 mg PO DAILY 09/28/2310/05 History benzonatate 200 mg capsule 200 mg PO TID PRN cough #20 caps 09/01/24 10/16/24 Rx methylprednisolone 4 mg tablets in See Rx Instructions PO PER PKG DIR 09/01/24 10/16/24 Rx a dose pack (Medrol (Joseph)) #21 tabs Is last menstrual period known: No Post menopausal: Yes Patient : No : No PFSH Surgical History S/P tendon repair Normal colonoscopy Family History Father , of [place] at 63 Myocardial infarction, Onset Age: 63 2002 Grandmother Diabetes Aunt Myocardial infarction Uncle Myocardial infarction Grandfather Arthritis Social History household members: spouse and children housing: house current occupational status: employed current occupation: [employer] Smoking Status: Never smoker alcohol intake: never substance use type: does not use caffeine: Yes what type of physical activity do you participate in: other details: crossfit frequency: 3-4 times per week seatbelt use: always do you feel safe at home: Yes additional social history: Crow History 3 Elective abortions Hx Para 3 Spontaneous abortions Hx # Term Pregnancies Ectopic pregnancies Hx # Pregnancies Multiple births # of living children HPI Encounter for routine gynecological examination Details: ENRIQUE RESTREPO is a 59 year old who presents for annual exam. She reports no issues or concerns today. Doing well overall. Last PAP: 2019; normal. HPV neg. History of abnormal PAP: no. Last mammogram: 2023; normal. History of abnormal mammogram: dense tissue Colon cancer screenin yrs ago; Camila? Other preventative health care screenings: Dr. Blue; PCP. Female Reproductive History Questions: metorrhagia: No, sexually active: Yes (vasectomy), dyspareunia: No and PCB: No ROS Const Constitutional: Denies chills, fatigue, fever(s), headache(s) or weight loss Eyes Eyes: Denies change in vision ENT ENT: Denies dizziness Cardio Card: Denies chest pain at rest or palpitations Resp Resp: Denies cough GI GI: Denies abdominal pain, constipation or nausea : Reports vaginal dryness; Denies difficulty voiding, dysuria, hematuria, nipple discharge, pelvic pain, prolapse symptoms, urinary incontinence, vaginal discharge, vaginal odor or vaginal pruritus Skin Skin/Breast: Denies alopecia, rash, breast mass, breast pain, breast skin changes or nipple discharge Neuro Neuro: Denies dizziness Psych Psych: Denies anxiety or depression Endo Endo: Denies cold intolerance, excessive sweating or heat intolerance Exam Const General: cooperative, healthy appearing, comfortable, no acute distress, well groomed and well hydrated Nutritional Appearance: well nourished Orientation: alert, awake and oriented x3 HENMT Head: normal to inspection and normocephalic Ears: hearing grossly normal bilaterally and external ears normal Nose: external nose normal Face and sinus: normal facial exam Eyes General: appearance normal, both eyes and all related structures Neck Neck: normal visual inspection, full ROM and no lymphadenopathy Thyroid: thyroid normal Chest Chest palpation & inspection: normal inspection of the chest Breast inspection: normal inspection of the breasts and normal inspection of theaxillae Breast palpation: normal palpation of the breasts, normal palpation of the axillae and no axillary lymphadenopathy Resp Effort & Inspection: normal respiratory effort, able to speak in complete sentences and symmetric chest movement GI Inspection: normal to inspection Palpation: soft and no hepatosplenomegaly General: bladder normal to palpation External Female Exam: normal external appearance and normal appearance of the urethra Urethra: normal appearance of the urethra Speculum Exam - Vagina: normal appearance of the vagina, normal vaginal discharge, no lesions and nontender Speculum Exam - Cervix: normal appearance of the cervix, no lesions and no masses Bimanual Exam- Vagina & Uterus: normal bimanual exam, uterine size normal, bladder normal to palpation, normal palpation and non-tender Bimanual Exam- Adnexa, other: normal adnexae, no masses, normal and non-tender Pelvic Support: normal Skin General: no rashes or lesions noted Neuro General: patient alert, patient awake, patient oriented x3 and moves all extremities Psych Appearance: grossly normal Mental Status: mental status grossly normal Affect: normal affect Speech and Movement: speech and movement normal Attitude: cooperative Coding Level of Care Code Established Pt Off vis,est,prev 40-64yrs Patient Type Established Diagnoses Encounter for routine gynecological examination Z01.419 Assessment and Plan Assessment and Plan (1) Encounter for routine gynecological examination: Plan: Breast and pelvic exam complete. PAP due: completed today Mammogram due: orders placed to obtain Advised self breast exams monthly. Contraception: post menopausal Advised incorporating healthy dietary choices such as increase in lean meats, fruits/vegetables, less processed food/sat fat/trans fats. Increase exercise to 30 minutes per day/5 days a week. This can include both weight bearing exercisesand/or brisk walking. Follow up with PCP for further preventative health screenings. 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 Call office sooner with questions or concerns. Orders: Orders SCRN MAMM (CAD)W/JAMAL BILAT Today Z12.31 - Encounter for screening mammogram for malignant neoplasm of breast PAP IG HPV APTIMA 16/18,45 Today Z12.4 - Encounter for screening for malignant neoplasm of cervix 10/16/24 1513 <Electronically signed by Carmen CONNELLY> Date _ Carmen CONNELLY Cosigner Signature: Date (if applicable) CC: ~ [facility] Work Phone: 1(791) 977-188105-13-2025 Evaluation note* Diagnosis Onset Date Resolution Status Admit Date Vaginal wall cyst acute September 8:17am Encounter for routine gynecological examination noneactive October 162024 2:40pm [facility] Work Phone: 1(257) 477-859905-13-2025 Evaluation note* Diagnosis Onset Date Resolution Status Admit Date Vaginal wall cyst acute September 8:17am Encounter for routine gynecological examination noneactive October 162024 2:40pm Herniated nucleus pulposus, L5-S1, right acute January 02 7:55am Lumbar radiculopathy acute Decu 2024 7:55am [facility] Work Phone: 1(378) 808-764705-13-2025 Evaluation note* Diagnosis Onset Date Resolution Status Admit Date Vaginal wall cyst acute September 8:17am Encounter for routine gynecological examination noneactive October 162024 2:40pm Herniated nucleus pulposus, L5-S1, right acute January 02 7:55am Lumbar radiculopathy acute Decu 2024 7:55am Acute UTI acute January 13, 2025 7:29am [facility] Work Phone: 1(664) 510-851106-01-2023 NoteHNO ID: [id number] Author: Jack Ortiz APRN.PLANNING SPECIALIST Service: ? Author Type: Nurse Practitioner Type: Progress Notes Filed: 10/12/2022 2:39 PM Note Text: Subjective HPI Nontoxic-appearing female presents urgent care chief complaint insect bite. Duration of symptoms 2 to 3 days. Associated symptoms redness and itching. States few days ago she noticed a what she appeared to be infected on her right lower mcintyre. The next morning she woke up and she has some itching and redness to this area. No pain. Has been using anti-itch creams does help. But some antibiotic cream on it today. Denies any pain.. Denies any fever body aches chills productive cough chest pain shortness of breath pleuritic pain hemoptysis nausea vomiting abdominal pain change in bowel or bladder habits. Past medical history prescription medication use and allergies reviewed. .Patient presents with: insect bite right mcintyre: X 2-3 days History reviewed. No pertinent past medical history. History reviewed. No pertinent surgical history. ALLERGIES Patient has no known allergies. MEDICATIONS No prescriptions on file. History reviewed. No pertinent family history. Social History Tobacco Use Smoking status: Never Smokeless tobacco: Never BP 128/80 Pulse 92 Temp 37.1 ?C (98.8 ?F) (Tympanic) Resp 18 Wt 71.6 kg (157 lb 12.8 oz) SpO2 97% Review of Systems Constitutional: Negative for chills, fever and malaise/fatigue. HENT: Negative for congestion, ear discharge, ear pain, sinus pain and sore throat. Eyes: Negative for blurred vision, pain, discharge and redness. Respiratory: Negative for cough, hemoptysis, sputum production, shortness of breath, wheezing and stridor. Cardiovascular: Negative for chest pain. Gastrointestinal: Negative for abdominal pain, diarrhea, nausea and vomiting. Musculoskeletal: Negative for myalgias. Skin: Positive for itching. Negative for rash. Neurological: Negative for dizziness and headaches. Objective Physical Exam Constitutional: General: She is not in acute distress. Appearance: She is not diaphoretic. HENT: Head: Normocephalic. Eyes: Conjunctiva/sclera: Conjunctivae normal. Pupils: Pupils are equal, round, and reactive to light. Cardiovascular: Rate and Rhythm: Normal rate and regular rhythm. Heart sounds: Normal heart sounds. Pulmonary: Effort: Pulmonary effort is normal. No tachypnea, accessory muscle usage or respiratory distress. Breath sounds: Normal breath sounds. No stridor. Abdominal: Palpations: Abdomen is soft. Tenderness: There is no abdominal tenderness. Musculoskeletal: Cervical back: Normal range of motion and neck supple. Skin: General: Skin is warm and dry. Comments: 1 cm x 1 cm area of redness. Some vesicles noted. No surrounding erythema edema. No remote redness. No desquamation of skin. No foreign bodies. No area of fluctuance. No area of induration. Neurological: Mental Status: She is alert and oriented to person, place, and time. ASSESSMENT/PLAN: 1. Insect bite of right lower extremity, initial encounter - ICD9: 916.4, E906.4, ICD10: S80.861A, W57.XXXA Diagnosis insect bite. No area of fluctuance noted. Topical antibiotic ointment prescribed. Use antihistamines as needed. Patient was educated on supportive therapies. Patient will follow up with primary care provider as needed. Patient was instructed to immediately proceed to emergency room for any new, worsening, or symptoms lasting longer than anticipated. The patient's clinical presentation is otherwise unremarkable at this time. Based on exam and clinical finding, the patient is stable for discharge. Plan of care was discussed with patient. Patient verbalizes understanding and agrees to plan of care. This note was generated using [employer] software. It may contain errors in wording, punctuation, or spelling. Jack Ortiz [facility]N.[facility] History of Present illness Narrative* Jack Ortiz APRN.LYLE - 10/12/2022 1:44 PM EDT Images from the original note were not included. Subjective HPI Nontoxic-appearing female presents urgent care chief complaint insect bite. Duration of symptoms 2 to 3 days. Associated symptoms redness and itching. States few days ago she noticed a what she appeared to be infected on her right lower mcintyre. The next morning she woke up and she has some itching and redness to this area. No pain. Has been using anti-itch creams does help. But some antibiotic cream on it today. Denies any pain.. Denies any fever body aches chills productive cough chest pain shortness of breath pleuritic pain hemoptysis nausea vomiting abdominal pain change in bowel or bladder habits. Past medical history prescription medication use and allergies reviewed. .Patient presents with: insect bite right mcintyre: X 2-3 days History reviewed. No pertinent past medical history. History reviewed. No pertinent surgical history. ALLERGIES Patient has no known allergies. MEDICATIONS No prescriptions on file. History reviewed. No pertinent family history. Social History Tobacco Use Smoking status: Never Smokeless tobacco: Never BP 128/80 Pulse 92 Temp 37.1 C (98.8 F) (Tympanic) Resp 18 Wt 71.6 kg (157 lb 12.8 oz) SpO2 97% Review of Systems Constitutional: Negative for chills, fever and malaise/fatigue. HENT: Negative for congestion, ear discharge, ear pain, sinus pain and sore throat. Eyes: Negative for blurred vision, pain, discharge and redness. Respiratory: Negative for cough, hemoptysis, sputum production, shortness of breath, wheezing and stridor. Cardiovascular: Negative for chest pain. Gastrointestinal: Negative for abdominal pain, diarrhea, nausea and vomiting. Musculoskeletal: Negative for myalgias. Skin: Positive for itching. Negative for rash. Neurological: Negative for dizziness and headaches. Objective Physical Exam Constitutional: General: She is not in acute distress. Appearance: She is not diaphoretic. HENT: Head: Normocephalic. Eyes: Conjunctiva/sclera: Conjunctivae normal. Pupils: Pupils are equal, round, and reactive to light. Cardiovascular: Rate and Rhythm: Normal rate and regular rhythm. Heart sounds: Normal heart sounds. Pulmonary: Effort: Pulmonary effort is normal. No tachypnea, accessory muscle usage or respiratory distress. Breath sounds: Normal breath sounds. No stridor. Abdominal: Palpations: Abdomen is soft. Tenderness: There is no abdominal tenderness. Musculoskeletal: Cervical back: Normal range of motion and neck supple. Skin: General: Skin is warm and dry. Comments: 1 cm x 1 cm area of redness. Some vesicles noted. No surrounding erythema edema. No remote redness. No desquamation of skin. No foreign bodies. No area of fluctuance. No area of induration. Neurological: Mental Status: She is alert and oriented to person, place, and time. ASSESSMENT/PLAN: 1. Insect bite of right lower extremity, initial encounter - ICD9: 916.4, E906.4, ICD10: S80.861A, W57.XXXA Diagnosis insect bite. No area of fluctuance noted. Topical antibiotic ointment prescribed. Use antihistamines as needed. Patient was educated on supportive therapies. Patient will follow up with primary care provider as needed. Patient was instructed to immediately proceed to emergency room for any new, worsening, or symptoms lasting longer than anticipated. The patient's clinical presentation is otherwise unremarkable at this time. Based on exam and clinical finding, the patient is stable fordischarge. Plan of care was discussed with patient. Patient verbalizes understanding and agrees to plan of care. This note was generated using [employer] software. It may contain errors in wording, punctuation, or spelling. Jack Ortiz APRN.PLANNING SPECIALIST documented in [facility] encounterSt[facility]* Diagnosis COVID-19 documented in this encounter [facility] Work Phone: Evaluation note* Diagnosis Insect bite of right lower extremity, initial encounter- Primary documented in this encounter [facility] noteNo assessment information availableBlProvidence Little [facility] Work Phone: Hospital Discharge instructionsAmbulatory Orders* Physical Therapy Referral Location: None Selected [facility] Work Phone: Progress note Author Taz Blue [facility] Note Date/Time February 16, 2025 9: 17am [facility] Internal Medicine [address] [place] [address] [place] [address] OFFICE VISIT Date of Service: 02/16/25 MR#: [id number] Acct: [id number] Name: ENRIQUE RESTREPO Rep #: [id number] : 1965 Provider: Dr. Nir Blue MD Age/Sex: 59/F [place] [facility] [place] Status: Signed Intake Vital Signs 12/25/24 10:07 01/02/25 08:06 02/16/25 08:40 Height 5 ft 3.5 in 5 ft 3.5 in 5 ft 3 in Weight: 159 lb BMI 28.1 BP 108/72 Blood Pressure Location Lt brachial Position Sitting Respiration 14 Pulse 79 Pulse Source Monitor Temp 97.2 F L Temp Source Temporal Pulse Oximetry (%) 97 Oxygen Delivery Method room air Intake Visit Reasons: Yearly. Check up. Ortho Patient Chief Complaint: Yearly visit Telephone Sterilizer Required: No Is patient in pain?: No Allergies No Known Allergies Allergy (Verified 02/16/25 08:37) Medications ?Medication ?Instructions ?Recorded ?Confirmed ?Type ascorbate calcium (vitamin C) 500 500 mg PO DAILY 06/1402/16/25 History mg tablet lactobacillus combination no.8 3 3,000 mmu cells PO DA MANUEL 06/24/19 02/16/25 History billion cell capsule (Adult Probiotic) multivitamin,ia-bthl-docsrtog 1 tab PO DAILY 06/24/19 02/16/25 History (Complete Multivitamin tablet) cholecalciferol (vitamin D3) 10 10 mcg PO DAILY 02/16/25 History mcg (400 unit) capsule coenzyme Q10 75 mg capsule (Ultra 75 mg PO DAILY 09/2702/16/25 History CoQ10) lysine 1,000 mg tablet 600 mg PO DAILY 09/28/2311/05 History magnesium citrate 100 mg tablet 400 mg PO DAILY 02/16/25 History magnesium glycinate 100 mg (as 200 mg PO DAILY 4 02/16/25 History glycinate) tablet magnesium oxide 250 mg PO DAILY 09/28/2311/05 History garlic 300 mg capsule 300 mg PO QDAY 01/02/2511/05 History meloxicam 7.5 mg tablet 7.5 mg PO BID Pain #60 tabs 01/09/25 02/16/25 Rx metoprolol tartrate 50 mg tablet 50 mg PO QDAY #1 TAB 02/16/25 02/16/25 Rx [facility] Medical History (Updated 02/16/25 @ 09:[address] 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 Her primary concern is a family history of early coronary artery disease; her father at age 63 from a cardiac event and did not have common risk factors such as smoking. There is a broader family history of sudden cardiac among her father's aunts and uncles. There is suspicion of hypertrophic obstructive cardiomyopathy (HOCM) in her father's sister, who underwent a cardiac procedure, though the diagnosis is unconfirmed. A previous provider ordered a coronary artery calcium score over a year ago, but the patient did not have it done. 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 Her lastmenstrual period was at age 53. She has a history of a herniated disc that has improved with physical therapy, allowing her to slowly return to CrossFit and weightlifting. The patient is not current on all immunizations and is due for the shingles vaccine. She exercises by walking and is cautious while reintroducing more strenuous activity. Attestation: Documentation on this patient encounter was supported using ambient scribe technology/ voice AI technology. The patient consented to recording for the purpose of documenting the encounter. Provider reviewed content of the generatednote prior to signature. ROS Const Constitutional: No body ache, chills, excessive sweating, fatigue, fever(s), frequent falls, headache(s), snoring, weakness, sleep problems or change in appetite Eyes Eyes: No blurry vision, change in vision, vision loss, dry eyes, eye pain or Light sensitivity ENT ENT: No abnormal hearing, ear or mastoid pain, tinnitus, nasal congestion, headache(s), neck pain or sore throat Resp Respiratory: No cough, excessive phlegm production, hemoptysis, shortness of breath, snoring or wheezing Cardio Cardiology: No chest pain at rest, chest pain with exertion, excessive sweating,shortness of breath, dyspnea on exertion, lightheadedness, orthopnea or palpitations Gastro GI: No abdominal pain, change in bowel habits, constipation, cramping, diarrhea,nausea/dyspepsia or vomiting Genitourinary-Female: No burning urination, painful urination, urinary incontinence, urinary frequency, abnormal vaginal bleeding or pelvic pain Musc Musculoskeletal: No abnormal gait, joint pain, back pain, limited range of motion, neck pain or numbness Skin Skin: No dry skin, redness, lesions, itchy eyes, rash or wounds Neuro Neurology: No abnormal gait, abnormal hearing, abnormal speech, behavioral changes, weakness, frequent falls, headache(s), memory loss or numbness Psych Psychiatric: No anxiety, No behavioral changes, No change in appetite, No depression, No memory loss and No Thoughts of harming yourself/Others Endo Endocrine: No cold intolerance, excessive sweating, fatigue, flushing, heat intolerance, increased thirst/drinking or increased hunger Aller/Imm Allergy/Immunologic: No itchy eyes, seasonal allergy symptoms, hives or wheezing Riley/Lymp Hematologic/Lymphatic: No easy bleeding, easy bruising, enlarged lymph nodes or other Exam Const General: cooperative, comfortable and no acute distress Orientation: alert, awake and oriented x3 HENMT Head: normal to inspection, normocephalic and atraumatic Ears: hearing grossly normal bilaterally Eyes General: appearance normal, both eyes and all related structures Neck Neck: normal visual inspection and full ROM Neck mass: No Thyroid: thyroid normal Resp Effort & Inspection: normal respiratory effort and able to speak in complete sentences Auscultation: Bilateral: Clear to Auscultation Cardio Rate: regular rate Rhythm: regular rhythm Heart Sounds: S1 normal and S2 normal GI Palpation: soft (Nontender, no palpable organomegaly) Neuro General: patient alert, patient awake, patient oriented x3, moves all extremities and CN's II-XI intact bilaterally Extrem General: no clubbing, cyanosis or edema Psych Appearance: grossly normal Mental Status: mental status grossly normal Mood: congruent mood Affect: normal affect Immunizations Flucelvax [id number] (PF) 45 mcg (15 mcg x 3)/0.5 mL IM syringe Performing Provider: Taz Blue MD Performing Location: [facility] Administered by: Diana Adan MA on 02/16/25 09:18 Dose Route Admin Location Dispensed Lot Number Expiration Date Pack age NDC NDC Gas Worker 0.5 mL IM Right Deltoid 0.5 mL [id number] 09/20/25 [id number] [employer] VIS Given Date VIS Provided VIS Publication Date 02/16/25 Single Vaccine 24 Eligibility Eligibility Date Funding Source Not Applicable Shingrix (PF) 50 mcg/0.5 mL intramuscular suspension, kit Performing Provider: Taz Blue MD Performing Location: [facility] Administered by: Diana Adan MA on 02/16/25 09:18 Dose Route Admin Location Dispensed Lot Number Expiration Date Pack age NDC NDC Gas Worker 0.5 mL IM Left Deltoid 0.5 [id number] 08/15/26 [id number] [employer] VIS Given Date VIS Provided VIS Publication Date 02/16/25 Single Vaccine 21 Eligibility Eligibility Date Funding Source Not Applicable Coding Level of Care Code Off vis,est,prev 40-64yrs Diagnoses Preventative health care Z00.00 Family history of early CAD Z82.49 Assessment and Plan Assessment and Plan (1) Preventative health care: Status: Acute (2) Family history of early CAD: Status: Acute Orders: Orders Lipoprotein A Today Z82.49 - Family history of ischemic heart disease and otherdiseases of the circulatory system Cardiac Calcium Scoring Today Z82.49 - Family history of ischemic heart diseaseand other diseases of the circulatory system Shingrix Shingles Adults Inj Today Z23 - Encounter for immunization Influenza Immunization Today Z23 - Encounter for immunization Medications: New metoprolol tartrate 50 mg PO QDAY 1 TAB 0RF Plan No acute concerns at this time. Overall, stable. Due to family history of early CAD, lipoprotein a and calcium scoring ordered. Risk factor modificationsdiscussed, she voiced understanding. 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 Last visit with SUEDING AND BUFFING MACHINE OPERATOR in October and has a mammogram scheduled shortly. Last menstrual period was 6 years ago, bone density scan after age 61. Continue strength training exercises. Colon cancer screening duein 2026. Continue follow-up with dermatology. Flu and initial shingles vaccinegiven today. Follow-up in a year or sooner if needed. This note was generated with [employer] software. It may contain incorrectwords, spelling, and punctuation that were not noted in checking the note beforesigning. Patient Instructions: - You will receive your flu shot and the first of two shingles shots today. Please schedule the second shingles shot for two months from now. - We will proceed with ordering a coronary artery calcium score. You will need to take one pill of metoprolol 50mg before this test to ensure your heart rate is below 70. - We will draw your blood today for lab tests. You do not need to fast for these. - Please try to get more information about your aunt's specific heart condition and send me a message through the patient portal. - Focus on a diet rich in plant-based foods, fish, and chicken to help manage your cholesterol. - Continue with your regular exercise, including walking and a cautious return to Cross[employer]. This is excellent for your bone and heart health. - We will plan to do a bone density screening when you turn 61. - Please upload the report from your 2017 colonoscopy to the patient portal. 02/16/25 1640 <Electronically signed by Taz valenzuela MD> Date _ Taz Blue MD Cosigner Signature: Date (if applicable) CC: ~ [facility] Work Phone: Reason for referral (narrative)No reason for referral information availableBlProvidence [facility] Work Phone: Summary Purpose Family History No Family History Records Found Relationship Condition Age at Onset Recorded Date/T zuleyma father Myocardial infarction 63 grandmother Diabetes mellitus Unknown aunt Myocardial infarction Unknown uncle Myocardial infarction Unknown grandfather Arthritis Unknown Advance Directives No Advanced Directives Records FoundDocuments on File Type Date Recorded 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 ACP-Advance Directive 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 Chief Complaint and Reason for Visit Chief Complaint Admit Date CONCERN FOR BRONCHITIS, FEVER August 9:44am 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 COVID/ [facility] September 01, 2024 10: 53am Vaginal Cyst September 23, 2024 8:17a m Chief Complaint Admit Date CONCERN FOR BRONCHITIS, FEVER August 9:44am EMPLOYEE COVID/ [facility] September 01, 2024 10: 53am Vaginal Cyst September 23, 2024 8:17a m Annual (SUEDING AND BUFFING MACHINE OPERATOR) October 16, 2024 2:40p m Reason for Visit Admit Date Vaginal wall cyst September 23, 2024 8:17a m Encounter for routine gynecological exam ination October 16, 2024 2:40pm Chief Complaint Admit Date Vaginal Cyst September 23, 2024 8:17a m Annual (SUEDING AND BUFFING MACHINE OPERATOR) October 16, 2024 2:40p m E-ORDER December 30, 2024 4: 47pm LUMBAR SPINE January 02, 2025 7: 55am Reason for Visit Admit Date Vaginal wall cyst September 23, 2024 8:17a m Encounter for routine gynecological exam ination October 16, 2024 2:40pm Herniated nucleus pulposus, L5-S1, right January 02, 2025 7:55am Lumbar radiculopathy January 02, 2025 7 :55am Chief Complaint Admit Date Vaginal Cyst September 23, 2024 8:17a m Annual (SUEDING AND BUFFING MACHINE OPERATOR) October 16, 2024 2:40p m E-ORDER December 30, 2024 4: 47pm LUMBAR SPINE January 02, 2025 7: 55am CONCERN FOR UTI January 13, 2025 7:29am Reason for Visit Admit Date Vaginal wall cyst September 23, 2024 8:17a m Encounter for routine gynecological exam ination October 16, 2024 2:40pm Herniated nucleus pulposus, L5-S1, right January 02, 2025 7:55am Lumbar radiculopathy January 02, 2025 7 :55am Acute UTI January 13, 2025 7:29am Chief Complaint Admit Date E-ORDER December 30, 2024 4: 47pm LUMBAR SPINE January 02, 2025 7: 55am CONCERN FOR UTI January 13, 2025 7:29am Yearly. Check up. Ortho Patient February 16, 2025 8:18am Reason for Visit Admit Date Herniated nucleus pulposus, L5-S1, right January 02, 2025 7:55am Lumbar radiculopathy January 02, 2025 7 :55am Acute UTI January 13, 2025 7:29am Family history of early CAD February 16, 2025 8:18am Preventative health care February 16 8:18am Chief Complaint Admit Date E-ORDER December 30, 2024 4: 47pm LUMBAR SPINE January 02, 2025 7: 55am CONCERN FOR UTI January 13, 2025 7:29am Yearly. Check up. Ortho Patient February 16, 2025 8:18am screen for breast cancer February 24, 025 4:09pm ABN MAMM February 27, 2025 1 :56pm Additional Source Comments INFORMATION SOURCE (unrecogn ized section and content) DATE CREATED AUTHOR 03/14/2018 [employer] DATE CREATED AUTHOR AUTHOR'S ORGANIZ ATION 10/17/2020 [facility] ([place]) DATE CREATED AUTHOR AUTHOR'S ORGANIZ ATION 10/25/2020 [facility] DATE CREATED AUTHOR AUTHOR'S ORGANIZ ATION 10/20/2022 [facility] DATE CREATED AUTHOR AUTHOR'S ORGANIZ ATION 03/24/2025 [facility] Source Comments (unrecognize d section and content) In the event this informatio n is protected by the Federal Confidentiality of Alcohol and Drug Abuse Patient Records regulations: The Federal rules restrict any use of the information to criminally investigate or prosecute any alcohol or drug abuse patient.[facility] Reason for Visit (unrecogniz ed section and content) Reason Comments insect bite right mcintyre X 2-3 days Care Teams (unrecognized sec tion and content) Team Status: Active Member Role Status Dates Dr. Be Neal MD Family Provider Active Dr. Taz Blue MD Primary Care Provider Active Team Status: Inactive Member Role Status Dates Dr. Taz Blue MD Primary Care Provider Active Start: September 01, 2024 End: September 01, 2024 Dr. Taz Blue MD Referring Provider Active Start: September 01, 2024 End: September 01, 2024 Rudy Taylor PA, PA Attending Provider Active Start: September 01, 2024 End: September 01, 2024 Team Status: Inactive Member Role Status Dates Dr. Taz Blue MD Primary Care Provider Active Start: September 23, 2024 End: September 23, 2024 Dr. Taz Blue MD Referring Provider Active Start: September 23, 2024 End: September 23, 2024 Porsha Cannon CNM Attending Provider Active Start: September 23, 2024 End: September 23, 2024 Team Status: Inactive Member Role Status Dates Dr. Taz Blue MD Primary Care Provider Active Start: October 16, 2024 End: October 16, 2024 Dr. Taz Blue MD Referring Provider Active Start: October 16, 2024 End: October 16, 2024 MARICEL Villalta Attending Provider Active Start: October 16, 2024 End: October 16, 2024 Team Status: Inactive Member Role Status Dates Dr. Taz Blue MD Primary Care Provider Active Start: October 16, 2024 End: October 16, 2024 MARICEL Villalta Attending Provider Active Start: October 16, 2024 End: October 16, 2024 MARICEL Villalta Referring Provider Active Start: October 16, 2024 End: October 16, 2024 Team Status: Active Member Role/Relationship Status Dates Dr. Be Neal MD Family Provider Active Dr. Taz Blue MD Primary Care Provider Active Team Status: Inactive Member Role/Relationship Status Dates Dr. Taz Blue MD Primary Care Provider Active Start: September 23, 2024 End: September 23, 2024 Dr. Taz Blue MD Referring Provider Active Start: September 23, 2024 End: September 23, 2024 Porsha Cannon CNM Attending Provider Active Start: September 23, 2024 End: September 23, 2024 Team Status: Inactive Member Role/Relationship Status Dates Dr. Taz Blue MD Primary Care Provider Active Start: October 16, 2024 End: October 16, 2024 Dr. Taz Blue MD Referring Provider Active Start: October 16, 2024 End: October 16, 2024 MARICEL Villalta Attending Provider Active Start: October 16, 2024 End: October 16, 2024 Team Status: Inactive Member Role/Relationship Status Dates Dr. Taz Blue MD Primary Care Provider Active Start: October 16, 2024 End: October 16, 2024 MARICEL Villalta Attending Provider Active Start: October 16, 2024 End: October 16, 2024 MARICEL Villalta Referring Provider Active Start: October 16, 2024 End: October 16, 2024 Team Status: Active Member Role/Relationship Status Dates Dr. Taz Blue MD Primary Care Provider Active Start: December 30, 2024 CARA Prasad Attending Provider Active Star t: December 30, 2024 CARA Prasad Referring Provider Active Star t: December 30, 2024 Team Status: Inactive Member Role/Relationship Status Dates Dr. Taz Blue MD Primary Care Provider Active Start: January 02, 2025 End: January 02, 2025 Dr. Taz Blue MD Referring Provider Active Start: January 02, 2025 End: January 02, 2025 CARA Prasad Attending Provider Active Star t: January 02, 2025 End: January 02, 2025 Team Status: Inactive Member Role/Relationship Status Dates Dr. Taz Blue MD Primary Care Provider Active Start: December 30, 2024 End: December 30, 2024 CARA Prasad Attending Provider Active Star t: December 30, 2024 End: December 30, 2024 CARA Prasad Referring Provider Active Star t: December 30, 2024 End: December 30, 2024 Team Status: Inactive Member Role/Relationship Status Dates Dr. Taz Blue MD Primary Care Provider Active Start: January 13, 2025 End: January 13, 2025 Dr. Taz Blue MD Referring Provider Active Start: January 13, 2025 End: January 13, 2025 MARICEL Rosa Attending Provider Active Star t: January 13, 2025 End: January 13, 2025 Team Status: Inactive Member Role/Relationship Status Dates Dr. Taz Blue MD Primary Care Provider Active Start: January 13, 2025 End: January 13, 2025 MARICEL Rosa Attending Provider Active Star t: January 13, 2025 End: January 13, 2025 Team Status: Active Member Role/Relationship Status Dates Dr. Taz Blue MD Primary care physician Activ e Team Status: Inactive Member Role/Relationship Status Dates Dr. Taz Blue MD Primary care physician Activ e Start: December 30, 2024 End: December 30, 2024 CARA Prasad Attending physician Active Sta rt: December 30, 2024 End: December 30, 2024 CARA Prasad Referring Provider Active Star t: December 30, 2024 End: December 30, 2024 Team Status: Inactive Member Role/Relationship Status Dates Dr. Taz Blue MD Primary care physician Activ e Start: January 02, 2025 End: January 02, 2025 Dr. Taz Blue MD Referring Provider Active Start: January 02, 2025 End: January 02, 2025 CARA Prasad Attending physician Active Sta rt: January 02, 2025 End: January 02, 2025 Team Status: Inactive Member Role/Relationship Status Dates Dr. Taz Blue MD Primary care physician Activ e Start: January 13, 2025 End: January 13, 2025 Dr. Taz Blue MD Referring Provider Active Start: January 13, 2025 End: January 13, 2025 MARICEL Rosa Attending physician Active Sta rt: January 13, 2025 End: January 13, 2025 Team Status: Inactive Member Role/Relationship Status Dates Dr. Taz Blue MD Primary care physician Activ e Start: January 13, 2025 End: January 13, 2025 MARICEL Rosa Attending physician Active Sta rt: January 13, 2025 End: January 13, 2025 Team Status: Inactive Member Role/Relationship Status Dates Dr. Taz Blue MD Primary care physician Activ e Start: February 16, 2025 End: February 16, 2025 Dr. Taz Blue MD Attending physician Active Start: February 16, 2025 End: February 16, 2025 Dr. Taz Blue MD Referring Provider Active Start: February 16, 2025 End: February 16, 2025 Team Status: Active Member Role/Relationship Status Dates Dr. Taz Blue MD Primary care physician Activ e Start: February 16, 2025 Health Risk Assessment Attending physician Active Start: February 16, 2025 Team Status: Active Member Role/Relationship Status Dates Dr. Taz Blue MD Primary care physician Activ e Start: February 16, 2025 Dr. Taz Blue MD Attending physician Active Start: February 16, 2025 Dr. Taz Blue MD Referring Provider Active Start: February 16, 2025 Team Status: Inactive Member Role/Relationship Status Dates Dr. Taz Blue MD Primary care physician Activ e Start: February 16, 2025 End: February 16, 2025 Dr. Taz Blue MD Attending physician Active Start: February 16, 2025 End: February 16, 2025 Dr. Taz Blue MD Referring Provider Active Start: February 16, 2025 End: February 16, 2025 Team Status: Inactive Member Role/Relationship Status Dates Dr. Taz Blue MD Primary care physician Activ e Start: February 24, 2025 End: February 24, 2025 MARICEL Villalta Attending physician Active Start: February 24, 2025 End: February 24, 2025 MARICEL Villalta Referring Provider Active Start: February 24, 2025 End: February 24, 2025 Team Status: Inactive Member Role/Relationship Status Dates Dr. Taz Blue MD Primary care physician Activ e Start: February 27, 2025 End: February 27, 2025 MARICEL Villalta Attending physician Active Start: February 27, 2025 End: February 27, 2025 MARICEL Villalta Referring Provider Active Start: February 27, 2025 End: February 27, 2025 Goals (unrecognized section and content) Goals may be documented in a n alternate sectionGoals may be documented in an alternate sectionGoals may be documented in an alternate sectionGoals may be documented in an alternate sectionGoals may be documented in an alternate sectionGoals may be documented in an alternate sectionGoals may be documented in an alternate sectionGoals may be documented in an alternate sectionGoals may be documented in an alternate section FOR RECORDS PERTAINING TO PATIENTS WHO ARE OR HAVE BEEN ENROLLED IN A CHEMICAL DEPENDENCY/SUBSTANCEABUSE PROGRAM, SOME INFORMATION MAY BE OMITTED. This clinical summary was aggregated from multiple sources. Caution should be exercised in using it in the provision of clinical care. This summary normalizes information from multiple sources, and as a consequence, information in this document may materially change the coding, format and clinical context of patient data. In addition, data may be omitted in some cases. CLINICAL DECISIONS SHOULD BE BASED ON THE PRIMARY CLINICAL RECORDS. [facility] [employer] [facility]. provides no warranty or guarantee of the accuracy or completeness of information in this document.
--- NOTE | 2025-03-27 14:12 | CA.SCORE ---
Calcium Scoring Date of Study:: 03/24/25 Indications Indications: HLD Coronary Calcium Scoring: High-resolution Computed Tomographic imaging of the chest was performed on [03/24/25 ], with particular attention paid to the coronary arteries. Images from the examination were analyzed for the presence and extent of coronary artery calcification , using coronary calcium quantification software. The patient tolerated the procedure well and there were no complications. The results of the coronary calcification analysis are provided below. Findings Coronary Artery Left Main (LM): 0 Left Anterior Descending (LAD): 0 Left Circumflex (LCX): 0 Right Coronary Artery (RCA): 0 Total Agatston Score: 0 Percentile Rankin Calcium Scoring Interpretation: Different methods to categorize the overall amount of coronary plaque. Overall amount CAC SIS Visual of coronary plaque P1 Mild -100 <2 1-2 vessels with mild amount of plaque P2 Moderate 101-300 3-4 1-2 vessels with moderate amount, 3 vessels with mild amount of plaque P3 Severe 301-999 5-7 3 vessels with moderate amount, 1 vessel with severe amount of plaque P4 Extensive >1000 >8 2-3 vessels with severe amount of plaque Conclusion: No atherosclerotic plaquing noted
== END | disposition home or self-care (01) ==
LOC: CT 07:13
PROVIDERS: PCP Internal Medicine; Referring Provider Internal Medicine; Visit Provider Internal Medicine
DX: Z82.49 Family history of ischemic heart disease and other diseases of the circulatory system (principal)
CPT/HCPCS: 75571; 76380